=== PATIENT | female | born 1960 | race Caucasian/White ===

== ENCOUNTER 2019-10-22 11:25 | Outpatient (CLI) | payer MEDICARE, MEDICAID, SELFPAY ==
--- NOTE | ~2019-10-22 | XR_ITS ---
EXAMINATION: XR knee LT 3V DATE: 10/22/2019 11:54 INDICATION: Left knee pain. TECHNIQUE: 3 views of left knee on 4 radiographs were obtained. COMPARISON: None. FINDINGS: Bone alignment is normal. No fracture. There is mild osteoarthritis of medial and lateral c ompartments and moderate osteoarthritis of patellofemoral compartment. There is no lateral view to as sess for joint effusion. There are surgical clips medial to the knee. IMPRESSION: 1. Moderate left knee osteoarthritis. Reviewed, dictated and finalized at location A.
== END 2019-10-22 11:26 | disposition home or self-care (01) ==
LOC: ANHIMG 11:30
PROVIDERS: PCP Internal Medicine; Visit Provider Nurse Practitioner
DX: M17.12 Unilateral primary osteoarthritis, left knee (principal)
CPT/HCPCS: 73562

== ENCOUNTER 2020-04-23 10:50 | Outpatient (CLI) | payer MEDICARE, MEDICAID, SELFPAY ==
[2020-04-23 11:28] LABS: Basophils Percent Auto 0.5 % (0.2-1.2); Eosinophils Absolute Auto 0.1 K/mm3 (0-0.3); Hemoglobin 8.6 g/dL (12.0-15.0); Immature Granulocyte Absolute 0.02 K/mm3 (0.00-0.031); Immature Granulocyte Percent A 0.3 % (0-0.5); Lymphocytes Absolute Auto 2.29 K/mm3 (0.9-3.2); Lymphocytes Percent Auto 37.4 % (18.3-44.2); Mean Corpuscular HGB Conc 31.9 g/dl (32-36); Mean Corpuscular Hemoglobin 30.9 pg (26-34); Mean Corpuscular Volume 97.1 fl (80-100); Mean Platelet Volume 10.2 fl (7.4-10.4); Monocytes Absolute Auto 0.5 K/mm3 (0.1-0.6); Neutrophils Absolute Auto 3.2 K/mm3 (1.3-6.7); Neutrophils Percent Auto 51.8 % (45.5-73.1); Platelet Count Result 192 k/mm3 (150-375); Red Blood Count 2.78 M/mm3 (4.2-5.4); Red Cell Distribution Width 14.1 % (11.5-14.5); White Blood Count 6.1 K/mm3 (4.5-10.0)
[2020-04-23 11:49] LABS: Iron 32 ug/dL (37-170)
[2020-04-23 11:59] LABS: Percent Iron Saturation 10 % (20-50)
[2020-04-27 12:14] LABS: ANA Cascade Screen Negative (Negative)
[2020-04-27 23:30] LABS: Abnormal Protein Band 1 2.2 g/dL; Albumin 3.4 g/dL (3.8-4.8); Alpha 1 Globulin 0.2 g/dL (0.2-0.3); Alpha 2 Globulin 0.8 g/dL (0.5-0.9); Beta 1 Globulin 0.5 g/dL (0.4-0.6); Gamma Globulin 2.6 g/dL (0.8-1.7); Protein, Total 7.7 g/dL (6.1-8.1)
[2020-04-30 05:48] LABS: Abnormal Protein Band 1 3 mg/dL; Abnormal Protein Band 2 13 mg/dL; Creatinine, Random Urine 94 mg/dL (20-275); Total Protein/Creatinine Ratio 415 mg/g creat (21-161)
== END 2020-04-23 10:51 | disposition home or self-care (01) ==
LOC: ANHLAB 10:55
PROVIDERS: PCP Internal Medicine; Visit Provider Nurse Practitioner
DX: N18.9 Chronic kidney disease, unspecified (principal); D64.9 Anemia, unspecified
CPT/HCPCS: 36415; 82570; 82728; 83540; 83550; 84155; 84156; 84165; 84166; 85025; 86038

== ENCOUNTER 2020-04-27 08:31 | Outpatient (CLI) | payer MEDICARE, MEDICAID, SELFPAY ==
--- NOTE | ~2020-04-27 | CT_ITS ---
EXAMINATION: CT lung screening DATE: 04/27/2020 08:52 INDICATION: Personal history of tobacco dependence, current smoker with 30 pack year history TECHNIQUE: Computed tomography (CT) of the chest was performed without intravenous contrast. The dose -length product (DLP) was 113.92 mGy-cm. 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 COMPARISON: 02/16/2015 FINDINGS: Stable nodules measure up to 3 mm. No new or suspicious pulmonary nodule is identified. The lungs are free of acute opacities. There is no pleural effusion or pneumothorax. Changes of coronary artery bypass grafting are noted. The heart size is normal. There are no pathologically enlarged tho racic lymph nodes. The gallbladder is surgically absent. There is mild thoracic spondylosis. IMPRESSION: 1. Lung-RADS category 2: Benign appearance or behavior. Continue annual screening with noncontrast lo w-dose chest CT in 12 months. Reviewed, dictated and finalized at location A. ATRIC CLINICAL NURSE SPECIALIST IMPRESSION: 1. Lung-RADS category 2: Benign appearance or behavior. Continue annual screeni ng with noncontrast low-dose chest CT in 12 months.
== END 2020-04-27 08:32 | disposition home or self-care (01) ==
PROVIDERS: PCP Internal Medicine; Visit Provider Nurse Practitioner
DX: Z12.2 Encounter for screening for malignant neoplasm of respiratory organs (principal); Z87.891 Personal history of nicotine dependence
CPT/HCPCS: G0297

== ENCOUNTER 2020-05-18 15:48 | Outpatient (CLI) | payer MEDICARE, MEDICAID, SELFPAY ==
[2020-05-18 16:06] LABS: Basophils Percent Auto 0.7 % (0.2-1.2); Eosinophils Absolute Auto 0.1 K/mm3 (0-0.3); Eosinophils Percent Auto 1.8 % (0-4.4); Hematocrit 27.9 % (37.0-47.0); Hemoglobin 8.8 g/dL (12.0-15.0); Immature Granulocyte Absolute 0.02 K/mm3 (0.00-0.031); Immature Granulocyte Percent A 0.3 % (0-0.5); Immature Reticulocyte Fraction 23.9 % (3.0-15.9); Lymphocytes Absolute Auto 2.08 K/mm3 (0.9-3.2); Lymphocytes Percent Auto 34.3 % (18.3-44.2); Mean Corpuscular HGB Conc 31.5 g/dl (32-36); Mean Corpuscular Hemoglobin 30.3 pg (26-34); Mean Corpuscular Volume 96.2 fl (80-100); Mean Platelet Volume 9.6 fl (7.4-10.4); Monocytes Absolute Auto 0.5 K/mm3 (0.1-0.6); Monocytes Percent Auto 7.7 % (2.6-8.5); Neutrophils Absolute Auto 3.4 K/mm3 (1.3-6.7); Neutrophils Percent Auto 55.2 % (45.5-73.1); Platelet Count Result 201 k/mm3 (150-375); Red Cell Distribution Width 14.2 % (11.5-14.5); Reticulocyte Hemoglobin Conten 35.4 pg (28.2-35.7); Reticulocyte Percent 2.05 % (0.7-4.3); Reticulocytes Absolute 0.06 B/L (32.2-175.7); White Blood Count 6.1 K/mm3 (4.5-10.0)
[2020-05-18 16:33] LABS: Iron 55 ug/dL (37-170)
[2020-05-18 16:35] LABS: Alanine Aminotransferase 10 U/L (4-35); Albumin Level 3.8 g/dL (3.5-5.1); Alkaline Phosphatase 87 U/L (38-126); Anion Gap 9 mmol/L (8-16); Aspartate Amino Transferase 20 U/L (14-36); Bilirubin,Total 0.3 mg/dL (0.2-1.3); Blood Urea Nitrogen 17 mg/dL (7-17); Calcium 9.7 mg/dL (8.4-10.2); Carbon Dioxide 29 mmol/L (22-30); Chloride 103 mmol/L (98-107); Estimated Glomerular Filt Rate 50; Glucose 117 mg/dL (65-105); Lactate Dehydrogenase 327 U/L (313-618); Potassium 4.3 mmol/L (3.4-5.0); Sodium 141 mmol/L (137-145)
[2020-05-18 16:44] LABS: Percent Iron Saturation 17 % (20-50)
[2020-05-18 17:45] LABS: Folic Acid 9.1 ng/mL (2.76->20)
== END 2020-05-18 15:49 | disposition home or self-care (01) ==
LOC: ANHLAB 15:52
PROVIDERS: PCP Internal Medicine; Visit Provider Internal Medicine Hematology & Oncology
DX: D50.9 Iron deficiency anemia, unspecified (principal)
CPT/HCPCS: 36415; 80053; 82607; 82728; 82746; 83540; 83550; 83615; 85025; 85046

== ENCOUNTER 2020-06-02 10:44 | Outpatient (CLI) | payer MEDICARE, MEDICAID, SELFPAY ==
[2020-06-02 13:08] LABS: Immunoglobulin G 429 mg/dL (700-1600)
[2020-06-02 13:14] LABS: Immunoglobulin M < 25 mg/dL (40-230)
[2020-06-02 13:39] LABS: Immunoglobulin A 2864 mg/dL (70-400)
[2020-06-04 07:33] LABS: Kappa\\Lambda Light Chains 0.05 (0.26-1.65); Lambda Light Chain 275.5 mg/L (5.7-26.3)
[2020-06-06 11:31] LABS: Abnormal Protein Band 1 2.2 g/dL; Albumin 3.5 g/dL (3.8-4.8); Alpha 1 Globulin 0.3 g/dL (0.2-0.3); Alpha 2 Globulin 0.8 g/dL (0.5-0.9); Beta 1 Globulin 0.5 g/dL (0.4-0.6); Gamma Globulin 2.6 g/dL (0.8-1.7)
== END 2020-06-02 10:45 | disposition home or self-care (01) ==
LOC: ANHLAB 10:46
PROVIDERS: PCP Internal Medicine; Visit Provider Internal Medicine Hematology & Oncology
DX: D64.9 Anemia, unspecified (principal); D72.9 Disorder of white blood cells, unspecified
CPT/HCPCS: 36415; 82784; 83883; 84155; 84165

== ENCOUNTER 2020-06-06 00:55 | Outpatient (CLI) | payer MEDICARE, MEDICAID, SELFPAY ==
[2020-06-06 18:47] LABS: SARS-CoV-2 RNA PCR Negative
== END 2020-06-06 00:56 | disposition home or self-care (01) ==
LOC: ANHCOVIDDT 00:57
PROVIDERS: Radiology Diagnostic Radiology; PCP Internal Medicine; Visit Provider Internal Medicine Hematology & Oncology
DX: Z01.812 Encounter for preprocedural laboratory examination (principal); Z20.822 Contact with and (suspected) exposure to COVID-19
CPT/HCPCS: C9803; U0003; U0005

== ENCOUNTER 2020-06-09 02:01 | Day surgery (SDC) | payer MEDICARE, MEDICAID, SELFPAY ==
[2020-06-08 17:03] VITALS: BMI 30.7
--- NOTE | ~2020-06-09 | BM_ITS ---
EXAMINATION: CCL bone marrow asp w bx diag DATE: 06/09/2020 10:14 INDICATION: Plasma cell disorder. TECHNIQUE: A time-out was performed to verify the patient's name, date of , and procedure to b e performed. The procedure including the risks, benefits, and alternatives was discussed with the pat ient. Risks discussed included bleeding and infection. The patient understood the risks and agreed to proceed. The skin overlying the right ilium was prepped and draped in usual sterile fashion. Anest hetic was administered with 1% lidocaine subcutaneously. 50 mcg fentanyl IV was given for pain contro l. An 11 gauge needle was inserted into the ilium with fluoroscopic guidance. Bone marrow was aspira laury. An 8 gauge needle was then inserted into the ilium with fluoroscopic guidance. A core bone marro w biopsy was obtained. There were no immediate complications. Fluoroscopy exposure time was 0.0 minut es. The total number of images was 4. FINDINGS: Real-time fluoroscopy demonstrates a marker overlying the right posterior superior iliac sp ine. IMPRESSION: 1. Fluoro-guided bone marrow aspiration. 2. Fluoro-guided bone marrow core biopsy. Reviewed, dictated and finalized at location A. BURNISHER
[2020-06-09 08:57] LABS: Basophils Percent Auto 0.5 % (0.2-1.2); Eosinophils Absolute Auto 0.1 K/mm3 (0-0.3); Hematocrit 27.9 % (37.0-47.0); Hemoglobin 8.9 g/dL (12.0-15.0); Immature Granulocyte Absolute 0.01 K/mm3 (0.00-0.031); Immature Granulocyte Percent A 0.2 % (0-0.5); Lymphocytes Percent Auto 36.2 % (18.3-44.2); Mean Corpuscular HGB Conc 31.9 g/dl (32-36); Mean Corpuscular Hemoglobin 30.6 pg (26-34); Mean Corpuscular Volume 95.9 fl (80-100); Mean Platelet Volume 10.1 fl (7.4-10.4); Monocytes Absolute Auto 0.5 K/mm3 (0.1-0.6); Monocytes Percent Auto 9.1 % (2.6-8.5); Neutrophils Absolute Auto 2.9 K/mm3 (1.3-6.7); Platelet Count Result 187 k/mm3 (150-375); Red Blood Count 2.91 M/mm3 (4.2-5.4); Red Cell Distribution Width 14.2 % (11.5-14.5); White Blood Count 5.5 K/mm3 (4.5-10.0)
[2020-06-09 09:08] LABS: Prothrombin Time 13.5 Seconds (11.1-14.7)
[2020-06-09 09:10] VITALS: BP 131/65; PULSE 68; RESP 15; TEMP 36.7; O2SAT 100
[2020-06-09 10:15] VITALS: BP 146/75; PULSE 68; RESP 18; TEMP 36.6; O2SAT 100
[2020-06-09 10:30] VITALS: BP 148/71; PULSE 72; RESP 16; O2SAT 100
[2020-06-09 10:45] VITALS: BP 164/61; PULSE 69; RESP 15; O2SAT 98
[2020-06-09 11:00] VITALS: BP 158/65; PULSE 68; RESP 17; O2SAT 96
[2020-06-09 11:15] VITALS: BP 155/62; PULSE 72; RESP 20; O2SAT 99
--- NOTE | 2020-06-09 13:01 | SUR.PHASEII ---
1125 D/C instructions reviewed patient, questions asked and answered. IV d/c'd, cath intact, pressure applied. 1140 Pt transported via wheelchair to [facility] where her daughter picked her up in a private vehicle and drove her home.
== END 2020-06-09 11:40 | disposition home or self-care (01) ==
PROVIDERS: PCP Internal Medicine; Referring Provider Internal Medicine Hematology & Oncology; Visit Provider Radiology Diagnostic Radiology
DX: C90.10 Plasma cell leukemia not having achieved remission (principal); I25.10 Atherosclerotic heart disease of native coronary artery without angina pectoris; I12.9 Hypertensive chronic kidney disease with stage 1 through stage 4 chronic kidney disease, or unspecified chronic kidney disease; N18.9 Chronic kidney disease, unspecified; J44.9 Chronic obstructive pulmonary disease, unspecified; I25.2 Old myocardial infarction; E11.22 Type 2 diabetes mellitus with diabetic chronic kidney disease; F32.9 Major depressive disorder, single episode, unspecified; Z95.1 Presence of aortocoronary bypass graft; Z87.891 Personal history of nicotine dependence
CPT/HCPCS: 36415; 38222; 82784; 83883; 84155; 84165; 85025; 85610; 88184; 88185; 88305; 88311; 88313; 88360; C9803; J2250; J3010; J7040; U0003; U0005

== ENCOUNTER 2020-07-01 09:59 | Outpatient (CLI) | payer MEDICARE, MEDICAID, SELFPAY | END 2020-07-01 10:00 | disposition home or self-care (01) | LOC: ANHLAB 10:02 | PROVIDERS: PCP Internal Medicine; Visit Provider Internal Medicine Hematology & Oncology | DX: D64.9 Anemia, unspecified (principal) | CPT/HCPCS: 36415; 82607 ==

== ENCOUNTER 2020-07-07 08:05 | Outpatient (CLI) | payer MEDICARE, MEDICAID, SELFPAY ==
--- NOTE | ~2020-07-07 | PE_ITS ---
EXAMINATION: PET skull to mid thigh DATE: 07/07/2020 10:19 INDICATION: Multiple myeloma TECHNIQUE: Blood glucose level was 153 mg/dL. 8.894 mCi of 18-fluorodeoxyglucose (18-FDG) was adminis tered i.v. Low dose computed tomography (CT) images were acquired from the base of the brain to the p roximal thighs for attenuation correction and anatomic localization. Positron emission tomography (PE T) images were acquired in the same distribution beginning 73 minutes after injection. Images includi ng fused PET/CT images were reconstructed in axial, coronal, and sagittal planes. Automated exposure control technique was employed. The dose-length product was 757.48mGy-cm. COMPARISON: Chest CT dated 04/27/2020 FINDINGS: Head/neck: There is symmetric increased activity in the oral cavity, palatine tonsils, parotid glands, submandi bular glands, laryngeal muscles and ocular muscles without CT correlate, likely physiologic. Mild lik genia physiologic uptake without radiologic correlate along the right longus capitis muscle. Atheroscle rotic calcification is at the bilateral carotid bulbs. No pathologically enlarged cervical lymphadeno chance or suspicious foci of increased FDG uptake in the visualized head or neck. Chest: Moderate respiratory motion lungs which limits assessment of fine pulmonary parenchymal detail. There is suggestion of mild emphysema. Mild discoid atelectasis in the left lower lobe. Again seen are a f ew <4 mm nodules at the periphery of the bilateral upper lobes without evident FDG activity. No pneum onia, pulmonary edema or pleural effusion. Heart size is normal. No pericardial effusion. Atheroscler otic coronary artery disease with change of prior median sternotomy and coronary artery bypass grafti ng. Thoracic aorta is normal in caliber. No pathologically enlarged thoracic lymphadenopathy or suspi cious FDG avid lesions. Abdomen/pelvis/proximal thighs: Physiologic renal accumulation and excretion of FDG activity in the kidneys, bladder and along portio ns of ureters. Normal degree and heterogenous pattern of increased uptake throughout the liver withou t radiologic correlate or dominant FDG avid lesion. There is diffuse increased density of the liver. Status post cholecystectomy. The pancreas, spleen and bilateral adrenal glands are normal. There is m oderate colonic diverticulosis with a sigmoid predominance without adjacent inflammatory change to metz ggest diverticulitis. Moderate scattered uptake throughout the bowels without radiologic correlate, a lso likely physiologic. Anteverted uterus is unremarkable. No other abnormal foci of increased FDG up take or pathologically enlarged lymphadenopathy in the abdomen, pelvis or proximal thighs. There is c alcified atherosclerosis of the aorta and many of the other arteries. Musculoskeletal: L3 spondylolysis with bilateral pars interarticularis defects, 5 mm anterolisthesis on L4 with severe disc height loss with vacuum phenomenon Modic type III degenerative endplate changes. Likely physiol ogic mild increased muscular uptake at both shoulders most prominent at the anterior aspect of the bi lateral deltoid muscles which are without radiologic correlate. Bone marrow biopsy tract at the right posterior iliac spine. There are bridging osteophytes at multiple levels in the spine, consistent wi th diffuse idiopathic skeletal hyperostosis (DISH).No suspicious lytic, blastic or FDG avid bone lesi ons. IMPRESSION: 1. No suspicious lytic or blastic bone lesions or FDG avid lesions suspicious for malignancy. 2. Mild emphysema. 3. Increased nonspecific density to the liver which could be seen with hemachromatosis or chronic ami odarone use. 4. Diverticulosis. 5. L3 spondylolysis with bilateral pars interarticularis defects and 5 mm anterolisthesis on L4. Reviewed, dictated and final
[2020-07-07 08:21] LABS: Glucose Point of Care 153 (65-105)
== END 2020-07-07 08:06 | disposition home or self-care (01) ==
PROVIDERS: PCP Internal Medicine; Visit Provider Internal Medicine Hematology & Oncology
DX: C90.00 Multiple myeloma not having achieved remission (principal); Z51.81 Encounter for therapeutic drug level monitoring; Z79.899 Other long term (current) drug therapy
CPT/HCPCS: 78815; 82948; A9552

== ENCOUNTER → 2020-07-25 00:21 | Outpatient (CLI) | payer MEDICARE, MEDICAID, SELFPAY ==
[2020-07-25 19:13] LABS: SARS-CoV-2 RNA PCR Negative
== END ==
PROVIDERS: PCP Internal Medicine; Visit Provider Internal Medicine Gastroenterology
DX: Z01.812 Encounter for preprocedural laboratory examination (principal); Z20.822 Contact with and (suspected) exposure to COVID-19
CPT/HCPCS: C9803; U0003; U0005

== ENCOUNTER 2020-07-28 01:06 | Day surgery (SDC) | payer MEDICARE, MEDICAID, SELFPAY ==
[2020-07-10 14:18] VITALS: BMI 30.4
[2020-07-28 09:00] VITALS: BP 173/68; PULSE 83; RESP 18; TEMP 36.4; O2SAT 100; BMI 30.4
[2020-07-28] MEDS: LACTATED RINGERS 1,000 ML 150 ML IV CONT (09:14)
[2020-07-28 09:17] LABS: Glucose Point of Care 142 (65-105)
--- NOTE | 2020-07-28 09:23 | WPDANESEPPF ---
Anes - Initial Pre Proc Eval Procedure: Operation Date: 07/28/20 10:15 Proposed Procedures p Esophagogastroduodenoscopy & Colonoscopy - Timothy Cooper MD Date/Time: 07/28/20 09:23 Surgeon: Timothy Cooper MD Pre Op Diagnosis: iron deficiency anemia Patient Data Age: 60 Gender: F Height: 5 ft 3 in Weight: 77.8 kg Last Vital Signs Temp 97.6 F 07/28/20 09:00 Pulse 83 07/28/20 09:00 Resp 18 07/28/20 09:00 BP 173/68 H 07/28/20 09:00 Pulse Ox 100 07/28/20 09:00 Allergies Allergy/AdvReac Type Severity Reaction Status Date / Time GÓMEZ Inhibitors Allergy Unknown Hives Verified 07/28/20 08:59 codeine Allergy Unknown Chest Pain Verified 07/28/20 08:59 tiotropium Allergy Unknown Unknown Verified 07/28/20 08:59 Home Medications Medication Instructions Recorded Confirmed Type aspirin 81 mg tablet,delayed 81 mg PO DAILY 03/19/19 07/28/20 History release albuterol sulfate 90 mcg/actuation 1 inhalation INHALATION Q4H PRN 04/03/19 07/28/20 Rx aerosol inhaler #8.5 gm fluticasone 100 mcg-salmeterol 50 1 puff INHALATION BID #60 each 05/03/19 07/28/20 Rx mcg/dose blistr powdr for inhalation blood sugar diagnostic #100 each 12/02/19 07/28/20 Rx insulin glargine 100 unit/mL (3 8 unit SUB-Q DAILY #15 ml 01/09/20 07/28/20 Rx mL) subcutaneous pen venlafaxine 75 mg tablet 75 mg PO DAILY #90 tablet 02/17/20 07/28/20 Rx lancets 33 gauge #100 ea 03/10/20 07/28/20 Rx pen needle, diabetic 31 gauge x #100 each 04/28/20 07/28/20 Rx 3/16 carvedilol 6.25 mg tablet 6.25 mg PO BID #180 tablet 05/07/20 07/28/20 Rx ferrous sulfate 325 mg (65 mg 325 mg PO DAILY #90 tablet 05/07/20 07/28/20 Rx iron) tablet losartan 25 mg tablet 25 mg PO DAILY #90 tablet 05/07/20 07/28/20 Rx metformin 500 mg tablet See Rx Instructions .ROUTE 05/07/20 07/28/20 Rx .COMPLEX #360 tablet omeprazole 40 mg capsule,delayed 40 mg PO BID #180 cap 05/07/20 07/28/20 Rx release oxybutynin chloride 5 mg tablet 5 mg PO BID #180 tablet 05/07/20 07/28/20 Rx pravastatin 40 mg tablet 40 mg PO DAILY #90 tablet 05/07/20 07/28/20 Rx trazodone 50 mg tablet 50 mg PO DAILY #180 tablet 05/07/20 07/28/20 Rx Laboratory Tests 07/28/20 09:07 POC Capillary Glucose 142 mg/dl H mg/dl (65-105) Patient hx anesthesia problems: none Family hx anesthesia problems: none PMFSH Past Medical History Medical History (Updated 07/23/20 @ 15:45 by Johnna Block NP) Anemia Bronchitis CAD (coronary artery disease) Cholecystectomy planned 1980 Chronic pain CKD (chronic kidney disease) COPD (chronic obstructive pulmonary disease) Heart attack 2010 Hyperlipidemia Hypertension Lump in neck Major depressive disorder Obesity Obesity (BMI 30.0-34.9) Type 2 diabetes mellitus Surgical History Surgical History S/P triple vessel bypass 2016 Family History Family History Father Diabetes mellitus Family history of congestive heart failure Mother Hypertension Social History Social History Smoking status: Former smoker Tobacco type: cigarettes Smoking end date: 05/08/10 Alcohol intake: current Drinks per week: 1 Substance use: never Substance use type: does not use Living arrangements: with family Gender identity (if verbalized by the patient): Female Spiritual care concerns: No Anes - Eval Final PreProcedure Day of Procedure 07/28/20 09:23 Patient weight: overweight Heart: regular rate and rhythm Lungs: clear to auscultation Airway: Mallampati scale class III Neurological: alert and oriented Last oral intake: >/= 8 hours ASA classification: III Emergent: no Anesthetic plan: proceed Anesthesia type and monitoring: general GIVS and standard monitoring Informed Consent: The patie
--- NOTE | 2020-07-28 09:36 | PM.HPGS ---
History of Present Illness History of Present Illness Consent: Risks, benefits, and alternatives have been discussed and questions answered. Patient agrees to proceed with procedure. Chief complaint: iron deficiency anemia Narrative: Eva Li is a 60 year old female with RAMIRO, never had scopes, denies over gib. Also gerd on omeprazole Review of Systems Constitutional: Constitutional: Denies headache(s) and Denies weakness Eyes: Eyes: Denies blurry vision ENT: Reports Normal hearing present, Denies headache(s) and Denies neck pain Cardiovascular: Cardiovascular: Denies chest pain and Denies dyspnea Respiratory: Respiratory: Denies dyspnea Gastrointestinal: Gastrointestinal: Reports no additional gastrointestinal complaints Genitourinary: Genitourinary: Denies dysuria Musculoskeletal: Musculoskeletal: Denies neck pain Integumentary/Breasts: Skin/Breast: Denies dry skin Neurologic: Reports Normal hearing present, Denies headache(s) and Denies weakness Psychiatric: Psychiatric: Denies anxiety Endocrine: Endocrine: Denies change in body appearance Hematologic/Lymphatic: Hematologic/Lymphatic: Denies easy bleeding Allergic/Immunologic: Allergic/Immunologic: Denies urticaria [facility] Past Medical History Medical History (Updated 07/28/20 @ 09:37 by Timothy Cooper MD) Anemia Bronchitis CAD (coronary artery disease) Cholecystectomy planned 1980 Chronic pain CKD (chronic kidney disease) COPD (chronic obstructive pulmonary disease) Heart attack 2010 Hyperlipidemia Hypertension Iron deficiency anemia Lump in neck Major depressive disorder Obesity Obesity (BMI 30.0-34.9) Type 2 diabetes mellitus Surgical History Surgical History S/P triple vessel bypass 2017 Family History Family History Father Diabetes mellitus Family history of congestive heart failure Mother Hypertension Social History Social History Smoking status: Former smoker Tobacco type: cigarettes Smoking end date: 05/08/10 Alcohol intake: current Drinks per week: 1 Substance use: never Substance use type: does not use Living arrangements: with family Gender identity (if verbalized by the patient): Female Spiritual care concerns: No Meds Home Medications and Allergies Home Medications Medication Instructions Recorded Confirmed Type aspirin 81 mg tablet,delayed 81 mg PO DAILY 03/19/19 07/28/20 History release albuterol sulfate 90 mcg/actuation 1 inhalation INHALATION Q4H PRN 04/03/19 07/28/20 Rx aerosol inhaler #8.5 gm fluticasone 100 mcg-salmeterol 50 1 puff INHALATION BID #60 each 05/03/19 07/28/20 Rx mcg/dose blistr powdr for inhalation blood sugar diagnostic #100 each 12/02/19 07/28/20 Rx insulin glargine 100 unit/mL (3 8 unit SUB-Q DAILY #15 ml 01/09/20 07/28/20 Rx mL) subcutaneous pen venlafaxine 75 mg tablet 75 mg PO DAILY #90 tablet 02/17/20 07/28/20 Rx lancets 33 gauge #100 ea 03/10/20 07/28/20 Rx pen needle, diabetic 31 gauge x #100 each 04/28/20 07/28/20 Rx 3/16 carvedilol 6.25 mg tablet 6.25 mg PO BID #180 tablet 05/07/20 07/28/20 Rx ferrous sulfate 325 mg (65 mg 325 mg PO DAILY #90 tablet 05/07/20 07/28/20 Rx iron) tablet losartan 25 mg tablet 25 mg PO DAILY #90 tablet 05/07/20 07/28/20 Rx metformin 500 mg tablet See Rx Instructions .ROUTE 05/07/20 07/28/20 Rx .COMPLEX #360 tablet omeprazole 40 mg capsule,delayed 40 mg PO BID #180 cap 05/07/20 07/28/20 Rx release oxybutynin chloride 5 mg tablet 5 mg PO BID #180 tablet 05/07/20 07/28/20 Rx pravastatin 40 mg tablet 40 mg PO DAILY #90 tablet 05/07/20 07/28/20 Rx trazodone 50 mg tablet 50 mg PO DAILY #180 tablet 05/07/20 07/28/20 Rx Allergies Allergy/AdvReac Type Severity Reaction Status Date / Time
--- NOTE | 2020-07-28 09:55 | SUR.OPER ---
EGD ENDED 947 COLONOSCOPY STARTED 951
[2020-07-28 10:12] VITALS: BP 141/57; PULSE 71; RESP 20; O2SAT 100
[2020-07-28 10:22] VITALS: BP 176/65; PULSE 71; RESP 20; O2SAT 100
[2020-07-28 10:28] LABS: Glucose Point of Care 126 (65-105)
[2020-07-28 10:32] VITALS: BP 171/63; PULSE 72; RESP 20; O2SAT 100
== END 2020-07-28 10:54 | disposition home or self-care (01) ==
PROVIDERS: PCP Internal Medicine; Visit Provider Internal Medicine Gastroenterology
PROC: 0DJ08ZZ Inspection of Upper Intestinal Tract, Via Natural or Artificial Opening Endoscopic (ICD-10-PCS; CPT 43235; principal; 2020-07-28 10:15)
DX: K21.9 Gastro-esophageal reflux disease without esophagitis (principal); D50.9 Iron deficiency anemia, unspecified; K29.50 Unspecified chronic gastritis without bleeding; Z12.11 Encounter for screening for malignant neoplasm of colon; D12.3 Benign neoplasm of transverse colon; K57.30 Diverticulosis of large intestine without perforation or abscess without bleeding; I25.10 Atherosclerotic heart disease of native coronary artery without angina pectoris; I12.9 Hypertensive chronic kidney disease with stage 1 through stage 4 chronic kidney disease, or unspecified chronic kidney disease; N18.9 Chronic kidney disease, unspecified; E11.22 Type 2 diabetes mellitus with diabetic chronic kidney disease; J44.9 Chronic obstructive pulmonary disease, unspecified; I25.2 Old myocardial infarction; E78.5 Hyperlipidemia, unspecified; F32.9 Major depressive disorder, single episode, unspecified; Z95.1 Presence of aortocoronary bypass graft; E66.9 Obesity, unspecified; Z68.30 Body mass index [BMI] 30.0-30.9, adult; Z87.891 Personal history of nicotine dependence; Z79.82 Long term (current) use of aspirin; Z79.4 Long term (current) use of insulin; Z79.84 Long term (current) use of oral hypoglycemic drugs; Z79.51 Long term (current) use of inhaled steroids
CPT/HCPCS: 45385; 43239; 82948; 88305; C9803; J2704; J7120; U0003; U0005

== ENCOUNTER 2021-08-20 09:26 | Outpatient (CLI) | payer MEDICARE, MEDICAID, SELFPAY ==
--- NOTE | ~2021-08-20 | XR_ITS ---
EXAMINATION: XR chest 2V EXAM DATE: 08/20/2021 09:43 INDICATION: R05 - Cough . TECHNIQUE: Frontal and lateral projections of the chest obtained and reviewed. Comparison is made to prior examination from 10/14/2018. FINDINGS: Sternotomy wires are present without findings to suggest sternal dehiscence. The lungs are clear. There are no pleural effusions. The cardiomediastinal silhouette is within normal limits. There is no pneumothorax suspected. The bones and soft tissues are unremarkable. There is aortic a rteriosclerosis. IMPRESSION: No acute cardiopulmonary findings. Reviewed, dictated and finalized at location B.
== END 2021-08-20 09:27 | disposition home or self-care (01) ==
PROVIDERS: PCP Internal Medicine; Visit Provider Nurse Practitioner
DX: R05.9 Cough, unspecified (principal)
CPT/HCPCS: 71046

== ENCOUNTER 2021-09-16 09:05 | Outpatient (CLI) | payer MEDICARE, MEDICAID, SELFPAY ==
--- NOTE | 2021-09-16 12:49 | WPDPFTINT ---
PFT Procedure Performed PFT Procedure Performed Spirometry with Pre/Post Bronchodilator Plethysmography (Lung Vol) Diffusing Cap (DLCO) Flow Vol Loop PFT Interpretation This is a pulmonary function test with pre and post-bronchodilator spirometry, plethysmography and diffusing capacity. The test was performed and results interpreted in accordance with the 2019 and 2005 ATS/ERS Task Force guidelines respectively using the Global Lung Function Initiative-2012 reference equations. Patient demonstrated good effort and cooperation. Reproducibility criteria were met. The quality of the pre bronchodilator spirometry maneuver was Grade A and post bronchodilator spirometry maneuver was Grade A. Findings: Spirometry: There is decreased maximal expiratory airflow at all lung volumes with a concave the expiratory flow tracing. The contour the inspiratory flow tracing is normal. The pre bronchodilator FVC is 2.62 L, 88% predicted. The pre bronchodilator FEV1 is 1.63 L, 69% predicted. The pre bronchodilator FEV1: FVC ratio 62%. The post bronchodilator FVC is 2.56 L, representing a 2% decrease. The post bronchodilator FEV1 is 1.66 L, representing 1% increase. The post bronchodilator FEV1: FVC ratio is 65%. Plethysmography: The total lung capacity is 4.67 L, 95% predicted. The functional residual capacity is 2.74 L, 99% predicted. The residual volume is 2.04 L, 103% predicted. Diffusing capacity: The diffusion capacity unadjusted for hemoglobin and carboxyhemoglobin is 10.9, 52% predicted. The diffusing capacity adjusted for alveolar volume is 3.05, 68% predicted. Impression: There is a moderate obstructive abnormality without significant improvement after inhaling a single dose of albuterol. The lung volumes are normal. The diffusing capacity unadjusted for hemoglobin and carboxyhemoglobin is moderately decreased and remains mildly decreased when adjusted for alveolar volume. There are no prior studies for comparison
== END 2021-09-16 09:06 | disposition home or self-care (01) ==
PROVIDERS: PCP Internal Medicine; Visit Provider Nurse Practitioner
DX: J44.9 Chronic obstructive pulmonary disease, unspecified (principal); R05.9 Cough, unspecified; R94.2 Abnormal results of pulmonary function studies
CPT/HCPCS: 94060; 94726; 94729

== ENCOUNTER 2022-05-05 11:28 | Outpatient (CLI) | payer MEDICARE, MEDICAID, SELFPAY ==
[2022-05-06 11:07] LABS: Hemoglobin A1C 5.8 % (<5.7)
== END 2022-05-05 11:29 | disposition home or self-care (01) ==
LOC: ANHGOSHLAB 11:32
PROVIDERS: PCP Internal Medicine; Visit Provider Nurse Practitioner
DX: E11.9 Type 2 diabetes mellitus without complications (principal)
CPT/HCPCS: 36415; 83036

== ENCOUNTER 2022-11-03 00:20 | Day surgery (SDC) | payer MEDICARE, MEDICAID, SELFPAY ==
[2022-11-02 15:08] VITALS: BMI 28.3
[2022-11-03] VITALS (7 sets, daily range): BP systolic 140–174; BP diastolic 64–71; PULSE 69–75; RESP 14–18; TEMP 36.6; O2SAT 98–100; BMI 28.3
--- NOTE | ~2022-11-03 | BM_ITS ---
EXAMINATION: CCL bone marrow asp w bx diag ORDER COMPLETED DATE: 11/03/2022 10:11 INDICATION: Myeloma TECHNIQUE: A time-out was performed to verify the patient's name, date of , and procedure to b e performed. The procedure including the risks, benefits, and alternatives was discussed with the pat ient. Risks discussed included bleeding and infection. The patient understood the risks and agreed to proceed. The skin overlying the right posterior iliac spine was prepped and draped in usual sterile fashion. Anesthetic was administered with 1% lidocaine subcutaneously. Systemic analgesia was provide d with 75 mcg fentanyl IV. An 11 gauge needle was inserted into the ilium with fluoroscopic guidance. Bone marrow was aspirated. An 8 gauge needle was then inserted into the ilium with fluoroscopic guid ance. 3 core bone marrow biopsy assessment for specimens were obtained. There were no immediate compl ications. Fluoroscopy exposure time was 0.1 minutes. The total number of images was 8. FINDINGS: Real-time fluoroscopy demonstrates a marker overlying the right posterior iliac spine. IMPRESSION: 1. Successful fluoro-guided bone marrow aspiration. 2. Successful fluoro-guided bone marrow core biopsy. Reviewed, dictated and finalized at location A.
[2022-11-03 08:26] LABS: Basophils Percent Auto 0.8 % (0.2-1.2); Eosinophils Absolute Auto 0.2 K/mm3 (0-0.3); Eosinophils Percent Auto 3.8 % (0-4.4); Hematocrit 29.1 % (37.0-47.0); Hemoglobin 8.9 g/dL (12.0-15.0); Immature Granulocyte Absolute 0.01 K/mm3 (0.00-0.031); Immature Granulocyte Percent A 0.3 % (0-0.5); Lymphocytes Absolute Auto 1.74 K/mm3 (0.9-3.2); Lymphocytes Percent Auto 44.5 % (18.3-44.2); Mean Corpuscular HGB Conc 30.6 g/dl (32-36); Mean Corpuscular Hemoglobin 28.7 pg (26-34); Mean Corpuscular Volume 93.9 fl (80-100); Mean Platelet Volume 9.6 fl (7.4-10.4); Monocytes Absolute Auto 0.4 K/mm3 (0.1-0.6); Neutrophils Absolute Auto 1.6 K/mm3 (1.3-6.7); Neutrophils Percent Auto 41.6 % (45.5-73.1); Platelet Count Result 183 k/mm3 (150-375); Red Cell Distribution Width 15.3 % (11.5-14.5); White Blood Count 3.9 K/mm3 (4.5-10.0)
[2022-11-03 08:40] LABS: Prothrombin Time 13.8 Seconds (11.1-14.7)
--- NOTE | 2022-11-03 09:24 | WPDMODSED ---
Moderate Sedation Note-Pt Data Patient Data Diagnosis: multiple myeloma Present Complaint: multiple myeloma Procedure to be performed/Plan: bone marrow biopsy Allergies Allergy/AdvReac Type Severity Reaction Status Date / Time GÓMEZ Inhibitors Allergy Unknown Hives Verified 11/02/22 14:59 codeine Allergy Unknown Chest Pain Verified 11/02/22 14:59 tiotropium Allergy Unknown Unknown Verified 11/02/22 14:59 Home Medications Medication Instructions Recorded Confirmed Type aspirin 81 mg tablet,delayed 81 mg PO DAILY 03/19/19 11/02/22 History release (Adult Low Dose Aspirin) albuterol sulfate 90 mcg/actuation 1 inhalation inhalation Q4H PRN 04/03/19 11/02/22 Rx aerosol inhaler (ProAir HFA) shortness of breath #8.5 grams blood sugar diagnostic (OneTouch #100 ea 12/02/19 10/25/22 Rx Ultra Blue Test Strip) fluticasone 100 mcg-salmeterol 50 1 inh inhalation BID #60 ea 12/21/20 11/02/22 Rx mcg/dose blistr powdr for inhalation (Advair Diskus) pen needle, diabetic 31 gauge x #100 ea 08/20/21 10/25/22 Rx 3/16 (TRUEplus Pen Needle) ferrous sulfate 325 mg (65 mg See Rx Instructions .Route 10/28/21 11/02/22 Rx iron) tablet (FeroSul) .COMPLEX #90 tabs budesonide-formoterol HFA 80 2 puff inhalation Q12H #10.2 grams 11/18/21 11/02/22 Rx mcg-4.5 mcg/actuation aerosol inhaler (Symbicort) pravastatin 40 mg tablet See Rx Instructions .Route 03/23/22 11/02/22 Rx .COMPLEX #90 tabs benzonatate 100 mg capsule 100 mg PO TID PRN cough #30 caps 04/15/22 11/02/22 Rx carvedilol 6.25 mg tablet 6.25 mg PO BID #180 tabs 05/16/22 11/03/22 Rx blood sugar diagnostic #100 ea 05/23/22 10/25/22 Rx lancets 28 gauge (Prodigy Lancets) #100 ea 05/23/22 10/25/22 Rx metformin 500 mg tablet See Rx Instructions .Route 07/22/22 11/02/22 Rx .COMPLEX #360 tabs venlafaxine 150 mg See Rx Instructions .Route 07/22/22 11/02/22 Rx capsule,extended release 24 hr .COMPLEX #90 caps insulin detemir U-100 100 unit/mL 4 unit (0.04 mL) subcut QHS #15 mL 08/25/22 11/02/22 Rx (3 mL) subcutaneous pen (Levemir FlexPen) omeprazole 40 mg capsule,delayed 40 mg PO BID #60 caps 09/22/22 11/02/22 Rx release losartan 25 mg tablet 25 mg PO DAILY #90 tabs 10/28/22 11/02/22 Rx trazodone 50 mg tablet See Rx Instructions .Route 10/31/22 11/02/22 Rx .COMPLEX #180 tabs oxybutynin chloride 5 mg tablet 5 mg PO DAILY 11/02/22 11/02/22 History vitamin B complex (B 1 tablet PO DAILY 11/02/22 11/02/22 History Complex-Vitamin B12 tablet) Sedation/Anesthesia: No previous sedation/anesthesia problems (including family history). [facility] Past Medical History Medical History Anemia Bronchitis CAD (coronary artery disease) Cholecystectomy planned 1980 Chronic pain CKD (chronic kidney disease) COPD (chronic obstructive pulmonary disease) Heart attack 2010 Hyperlipidemia Hypertension Iron deficiency anemia Lump in neck Major depressive disorder Obesity Obesity (BMI 30.0-34.9) Type 2 diabetes mellitus Surgical History Surgical History S/P triple vessel bypass 2016 Family History Family History Father Diabetes mellitus Family history of congestive heart failure Mother Hypertension Social History Social History (Updated 05/05/22 @ 10:38 by Betzaida Gayle CMA) Social History: Caffeine-coffee/soda Smoking packs per day: 1 Smoking cigarettes per day: 20.0 Years smoked: 35 Smoking pack-years: 35.00 Smoking status: Former smoker Tobacco type: cigarettes Second hand tobacco smoke exposure: No Smoking end date: 05/08/10 Additional smoking assessment comments: 2010 Alcohol intake: never Drinks per week: 1 Alcohol use details: Pt drinks occasionally. Substance use: current Substance use type: marijuana Other substa
--- NOTE | 2022-11-03 10:46 | SUR.PHASEII ---
Addendum entered by Meggan Cardenas RN 11/03/22 15:02: Asked MD also about when to restart home aspirin. MD stated patient can restart aspirin tomorrow morning as normal. Original Note: Call placed to Dr. Caceres. Stated pt having complaint of pain, patient describes it at lower mid back where procedure site is. Checked site, dressing clean dry and intact. Notified MD of this. One time order received for po pain medication before discharge.
[2022-11-03] MEDS: HYDROcodone/acetaminophen (*CRX) 5-325 MG TABLET 1 TAB PO (11:08)
== END 2022-11-03 11:30 | disposition home or self-care (01) ==
PROVIDERS: Absent Provider Internal Medicine Hematology & Oncology; PCP Internal Medicine; Visit Provider Radiology Diagnostic Radiology
DX: C90.00 Multiple myeloma not having achieved remission (principal); I12.9 Hypertensive chronic kidney disease with stage 1 through stage 4 chronic kidney disease, or unspecified chronic kidney disease; E11.22 Type 2 diabetes mellitus with diabetic chronic kidney disease; N18.9 Chronic kidney disease, unspecified; I25.10 Atherosclerotic heart disease of native coronary artery without angina pectoris; J44.9 Chronic obstructive pulmonary disease, unspecified; I25.2 Old myocardial infarction; E78.5 Hyperlipidemia, unspecified; D50.9 Iron deficiency anemia, unspecified; F32.9 Major depressive disorder, single episode, unspecified; E66.9 Obesity, unspecified; Z68.28 Body mass index [BMI] 28.0-28.9, adult; Z95.1 Presence of aortocoronary bypass graft; Z79.82 Long term (current) use of aspirin; Z79.51 Long term (current) use of inhaled steroids; Z79.84 Long term (current) use of oral hypoglycemic drugs; Z79.4 Long term (current) use of insulin; Z87.891 Personal history of nicotine dependence; F12.90 Cannabis use, unspecified, uncomplicated
CPT/HCPCS: 36415; 38222; 85025; 85610; 88184; 88185; 88305; 88311; 88313; 88342; A9270; J1642; J2250; J3010; J7050

== ENCOUNTER 2022-11-22 10:07 | Outpatient (CLI) | payer MEDICARE, MEDICAID, SELFPAY ==
[2022-11-22 11:40] LABS: Hemoglobin A1C 5.8 % (<5.7)
== END 2022-11-22 10:08 | disposition home or self-care (01) ==
LOC: ANHLAB 10:09
PROVIDERS: PCP Nurse Practitioner; Visit Provider Internal Medicine Hematology & Oncology
DX: E11.9 Type 2 diabetes mellitus without complications (principal)
CPT/HCPCS: 36415; 83036

== ENCOUNTER 2022-11-30 15:10 | Outpatient (CLI) | payer MEDICARE, MEDICAID, SELFPAY ==
--- NOTE | ~2022-11-30 | XR_ITS ---
EXAMINATION: BONE SURVEY/METASTATIC SURVEY DATE: 11/30/2022 INDICATION: Multiple myeloma not having achieved remission TECHNIQUE: A skeletal survey was performed including PA views of the chest; AP and lateral/lateral sw immers views of the cervical, thoracic and lumbar spine; AP and lateral view of the skull, and AP and lateral views of the appendicular skeleton excluding the hands and feet. COMPARISON: None. FINDINGS: No suspicious lytic or blastic bone lesions in the axial or appendicular skeleton. Mild cervical, mod erate thoracic and severe lumbar spondylosis. 7 mm anterolisthesis L3 on L4. Chronic mild anterior we dging at T11. Lungs are clear with no focal airspace opacities, pulmonary edema, pleural effusion or pneumothorax. Heart size is normal. Median sternotomy wires and mediastinal surgical clips are seen, likely from prior coronary artery bypass grafting. IMPRESSION: 1. No suspicious lytic or blastic bone lesions. Reviewed, dictated and finalized at location A.
== END 2022-11-30 15:11 | disposition home or self-care (01) ==
LOC: ANHIMG 15:13
PROVIDERS: PCP Nurse Practitioner; Visit Provider Internal Medicine Hematology & Oncology
DX: C90.00 Multiple myeloma not having achieved remission (principal)
CPT/HCPCS: 77075

== ENCOUNTER 2023-01-03 13:55 | Outpatient (CLI) | payer MEDICARE, MEDICAID, SELFPAY ==
--- NOTE | ~2023-01-03 | US_ITS ---
EXAMINATION: US venous doppler LE RT DATE: 01/03/2023 14:52 INDICATION: LEG SWELLING . TECHNIQUE: Grayscale images without and with compression and Doppler images of the right lower extrem ity veins were obtained. COMPARISON: 02/05/2014 FINDINGS: The right common femoral vein, profunda (deep) femoral vein, femoral vein, popliteal vein, posterior tibial veins, gastrocnemius vein, and greater saphenous vein are patent. The peroneal veins are not v isualized. IMPRESSION: Peroneal veins not visualized. Otherwise patent right lower extremity veins without evidence of deep venous thrombosis. Reviewed, dictated and finalized at location K. IMPRESSION: Peroneal veins not visualized. Otherwise patent right lower extremity veins wit hout evidence of deep venous thrombosis.
== END 2023-01-03 13:56 | disposition home or self-care (01) ==
PROVIDERS: PCP Nurse Practitioner; Visit Provider Internal Medicine Hematology & Oncology
DX: M79.89 Other specified soft tissue disorders (principal)
CPT/HCPCS: 36415; 80047; 80053; 85025; 93971; 96372; 96401; J9041; Q5106

== ENCOUNTER 2023-03-03 07:41 | Outpatient (RCR) | payer MEDICARE, MEDICAID, SELFPAY ==
[2023-03-03] VITALS (12 sets, daily range): BP systolic 137–164; BP diastolic 47–89; PULSE 61–70; RESP 16–18; TEMP 36.3–37; O2SAT 97–100
[2023-03-03] MEDS: ACETAMINOPHEN 325 MG TABLET 650 MG PO (08:07)
[2023-03-03] MEDS: diphenhydrAMINE HCl CAP 25 MG CAPSULE PO (08:08)
[2023-03-03] MEDS: SODIUM CHLORIDE 0.9% IV 250 ML 30 ML IV CONT (08:08)
[2023-03-03] MEDS: FUROSEMIDE INJ 40 MG/4 ML VIAL 20 MG IV PUSH (11:42)
== END 2023-05-31 23:59 | disposition home or self-care (01) ==
LOC: ANHCPCTRAN 07:41
PROVIDERS: PCP Nurse Practitioner; Visit Provider Internal Medicine Hematology & Oncology
DX: N19 Unspecified kidney failure (principal); D63.1 Anemia in chronic kidney disease
CPT/HCPCS: 36415; 36430; 86850; 86900; 86901; 86923; 96374; A9270; J1940; J7050; P9016

== ENCOUNTER 2023-05-30 11:23 | Outpatient (CLI) | payer MEDICARE, MEDICAID, SELFPAY ==
[2023-05-30 16:49] LABS: Free T4 Free Thyroxine 0.94 ng/mL (0.78-2.19)
[2023-05-30 17:42] LABS: Cholesterol 157 mg/dL (0-200); HDL Direct 70 mg/dL; Triglycerides 127 mg/dL (<150)
[2023-05-30 17:53] LABS: LDL Cholesterol Direct 71 mg/dL
[2023-06-03 07:40] LABS: Triiodothyronine T3 Free 2.7 pg/mL (2.3-4.2)
== END 2023-05-30 11:24 | disposition home or self-care (01) ==
LOC: ANHLAB 11:26
PROVIDERS: PCP Nurse Practitioner; Visit Provider Internal Medicine Hematology & Oncology
DX: E78.5 Hyperlipidemia, unspecified (principal); E11.9 Type 2 diabetes mellitus without complications
CPT/HCPCS: 36415; 80061; 83036; 84439; 84443; 84481

== ENCOUNTER 2023-06-08 00:48 | Day surgery (SDC) | payer MEDICARE, MEDICAID, SELFPAY ==
[2023-06-07 15:16] VITALS: BMI 29.7
--- NOTE | ~2023-06-08 | BM_ITS ---
EXAMINATION: CCL bone marrow asp w bx diag DATE: 06/08/2023 09:55 INDICATION: Multiple myeloma. TECHNIQUE: A time-out was performed to verify the patient's name, date of , and procedure to b e performed. The procedure including the risks, benefits, and alternatives was discussed with the pat ient. Risks discussed included bleeding and infection. The patient understood the risks and agreed to proceed. The skin overlying the left ilium was prepped and draped in usual sterile fashion. Anesth etic was administered with 1% lidocaine subcutaneously. Moderate sedation was achieved with 1 mg Vers ed IV and 50 mcg fentanyl IV. An 11 gauge needle was inserted into the ilium with fluoroscopic karen nce. Bone marrow was aspirated. An 8 gauge needle was then inserted into the ilium with fluoroscopic guidance. A core bone marrow biopsy was obtained. There were no immediate complications. Fluoroscopy exposure time was 0.0 minutes. The total number of images was 11. FINDINGS: Real-time fluoroscopy demonstrates a marker overlying the left posterior superior iliac spi ne. IMPRESSION: 1. Fluoro-guided bone marrow aspiration. 2. Fluoro-guided bone marrow core biopsy. Reviewed, dictated and finalized at location A. WAY [facility]
[2023-06-08 07:48] VITALS: BP 145/63; PULSE 66; RESP 14; TEMP 36.8; O2SAT 100
[2023-06-08 07:53] LABS: Basophils Absolute Auto 0.1 K/mm3 (0.0-0.1); Basophils Percent Auto 2.2 % (0.2-1.2); Eosinophils Absolute Auto 0.1 K/mm3 (0-0.3); Eosinophils Percent Auto 2.2 % (0-4.4); Hematocrit 29.5 % (37.0-47.0); Hemoglobin 9.2 g/dL (12.0-15.0); Immature Granulocyte Absolute 0.02 K/mm3 (0.00-0.031); Immature Granulocyte Percent A 0.4 % (0-0.5); Lymphocytes Absolute Auto 1.17 K/mm3 (0.9-3.2); Lymphocytes Percent Auto 23.9 % (18.3-44.2); Mean Corpuscular HGB Conc 31.2 g/dl (32-36); Mean Corpuscular Hemoglobin 33.5 pg (26-34); Mean Corpuscular Volume 107.3 fl (80-100); Monocytes Absolute Auto 0.8 K/mm3 (0.1-0.6); Monocytes Percent Auto 15.3 % (2.6-8.5); Neutrophils Absolute Auto 2.7 K/mm3 (1.3-6.7); Platelet Count Result 191 k/mm3 (150-375); Red Blood Count 2.75 M/mm3 (4.2-5.4); Red Cell Distribution Width 17.3 % (11.5-14.5); White Blood Count 4.9 K/mm3 (4.5-10.0)
[2023-06-08 08:04] LABS: INR 0.9; Prothrombin Time 12.8 Seconds (11.1-14.7)
[2023-06-08 08:23] LABS: Anisocytosis 1+ (NORMAL); Hypochromasia 1+ (NORMAL); Macrocytosis 1+ (NORMAL); Platelet Estimate Adequate (Adequate); Schistocytes Rare (NORMAL)
--- NOTE | 2023-06-08 09:10 | WPDMODSED ---
Moderate Sedation Note-Pt Data Patient Data Diagnosis: Multiple myeloma. Present Complaint: Multiple myeloma. Procedure to be performed/Plan: Fluoro-guided bone marrow biopsy of ilium. Allergies Allergy/AdvReac Type Severity Reaction Status Date / Time GÓMEZ Inhibitors Allergy Intermediate Hives Verified 06/08/23 07:38 codeine AdvReac Intermediate Chest Pain Verified 06/08/23 07:38 tiotropium AdvReac Intermediate Unknown Verified 06/08/23 07:38 Home Medications Medication Instructions Recorded Confirmed Type aspirin 81 mg tablet,delayed 81 mg PO DAILY 03/19/19 06/07/23 History release (Adult Low Dose Aspirin) budesonide-formoterol HFA 80 2 puff inhalation Q12H #10.2 grams 11/18/21 06/07/23 Rx mcg-4.5 mcg/actuation aerosol inhaler (Symbicort) calcium 500 mg tablet 500 mg PO DAILY 02/07/23 06/07/23 History oxybutynin chloride 5 mg tablet 5 mg PO DAILY #90 tabs 04/19/23 06/08/23 Rx benzonatate 100 mg capsule 100 mg PO TID PRN cough #30 caps 04/25/23 06/07/23 Rx albuterol sulfate 90 mcg/actuation 1 inh inhalation Q4H PRN shortness 05/25/23 06/07/23 Rx aerosol inhaler (ProAir HFA) of breath #8.5 grams carvedilol 6.25 mg tablet 6.25 mg PO BID #180 tabs 05/25/23 06/08/23 Rx fluticasone 100 mcg-salmeterol 50 1 inh inhalation BID #60 ea 05/25/23 06/07/23 Rx mcg/dose blistr powdr for inhalation (Advair Diskus) losartan 25 mg tablet 25 mg PO DAILY #90 tabs 05/25/23 06/08/23 Rx omeprazole 40 mg capsule,delayed 40 mg PO BID #180 caps 05/25/23 06/08/23 Rx release Adults Multivitamin 1 tablet PO DAILY 06/07/23 06/07/23 History acyclovir 400 mg tablet 400 mg PO TID 06/07/23 06/07/23 History ferrous sulfate 325 mg (65 mg 325 mg PO DAILY 06/07/23 06/07/23 History iron) tablet (FeroSul) metformin 500 mg tablet 1,000 mg PO BID 06/07/23 06/07/23 History pravastatin 40 mg tablet 40 mg PO HS 06/07/23 06/07/23 History sulfamethoxazole 800 1 tablet PO BID 06/07/23 06/07/23 History mg-trimethoprim 160 mg tablet trazodone 50 mg tablet 50 mg PO HS PRN Insomnia 06/07/23 06/07/23 History venlafaxine 150 mg 150 mg PO DAILY 06/07/23 06/08/23 History capsule,extended release 24 hr Sedation/Anesthesia: No previous sedation/anesthesia problems (including family history). [facility] Past Medical History Medical History Anemia Bronchitis CAD (coronary artery disease) Cholecystectomy planned 1980 Chronic pain CKD (chronic kidney disease) COPD (chronic obstructive pulmonary disease) Heart attack 2010 Hyperlipidemia Hypertension Iron deficiency anemia Lump in neck Major depressive disorder Obesity Obesity (BMI 30.0-34.9) Type 2 diabetes mellitus Surgical History Surgical History S/P triple vessel bypass 2016 Family History Family History Father Diabetes mellitus Family history of congestive heart failure Mother Hypertension Social History Social History Social History: Caffeine-coffee/soda Smoking packs per day: 0.75 Smoking cigarettes per day: 15.0 Years smoked: 40 Smoking pack-years: 30.00 Smoking status: Former smoker Tobacco type: cigarettes Second hand tobacco smoke exposure: No Smoking end date: 07/13/10 Additional smoking assessment comments: 2010 Alcohol intake: former Drinks per week: 1 Alcohol use details: Pt drinks occasionally. Substance use: current Substance use type: marijuana Other substance usage details: couple times per week Last use: 11/01/22 Lack of Transportation: YES Lack of Food: Sometimes True Current Housing: I Have Housing Concerned About Future Housing: No Difficulty Paying Gas/Electric Bills: YES Difficulty Paying for Meds: YES Currently Unemployed: No Education: [employer]
[2023-06-08 09:50] VITALS: BP 169/62; PULSE 65; RESP 19; O2SAT 99
[2023-06-08 10:00] VITALS: BP 177/66; PULSE 63; RESP 14; O2SAT 100
[2023-06-08 10:15] VITALS: BP 187/67; PULSE 68; RESP 12; O2SAT 100
[2023-06-08 10:30] VITALS: BP 175/57; PULSE 63; RESP 17; O2SAT 100
[2023-06-08 10:50] VITALS: BP 164/77; PULSE 68; RESP 13; O2SAT 100
== END 2023-06-08 11:05 | disposition home or self-care (01) ==
PROVIDERS: PCP Nurse Practitioner; Visit Provider Radiology Diagnostic Radiology
DX: C90.00 Multiple myeloma not having achieved remission (principal); D53.9 Nutritional anemia, unspecified; I25.10 Atherosclerotic heart disease of native coronary artery without angina pectoris; I12.9 Hypertensive chronic kidney disease with stage 1 through stage 4 chronic kidney disease, or unspecified chronic kidney disease; E11.22 Type 2 diabetes mellitus with diabetic chronic kidney disease; N18.9 Chronic kidney disease, unspecified; I25.2 Old myocardial infarction; J44.9 Chronic obstructive pulmonary disease, unspecified; E78.5 Hyperlipidemia, unspecified; F32.9 Major depressive disorder, single episode, unspecified; E66.9 Obesity, unspecified; Z68.29 Body mass index [BMI] 29.0-29.9, adult; Z79.51 Long term (current) use of inhaled steroids; Z79.82 Long term (current) use of aspirin; Z95.1 Presence of aortocoronary bypass graft; Z87.891 Personal history of nicotine dependence; F12.90 Cannabis use, unspecified, uncomplicated
CPT/HCPCS: 36415; 38222; 85025; 85610; 88305; 88311; 88313; 88341; 88342; J1642; J2250; J3010; J7040

== ENCOUNTER 2023-08-13 21:54 | Emergency (ER) | payer MEDICARE, MEDICAID, SELFPAY ==
[2023-08-13 22:13] VITALS: BP 185/62; PULSE 77; RESP 16; TEMP 36.4; O2SAT 100
--- NOTE | 2023-08-13 23:10 | PC.NURSE ---
Pt placed in family room post triage d/t potential neutropenia/on chemo.
[2023-08-13 23:23] VITALS: BP 168/53; PULSE 63; RESP 16; O2SAT 100
[2023-08-13] MEDS: methylPREDNISolone SOD SUCC 125 MG VIAL IV PUSH (23:54)
[2023-08-13] MEDS: diphenhydrAMINE HCl INJ 50 MG/ML VIAL IV PUSH (23:55)
--- NOTE | 2023-08-13 23:55 | ED.GENADULT ---
HPI - General Adult General Chief complaint: Skin/Abscess/Foreign Body Stated complaint: rash over body, chemo patient Time Seen by Provider: 08/13/23 23:18 History of Present Illness HPI narrative: Patient is a 63-year-old female who presents emergency department with chief complaint of rash. The patient reports he is currently undergoing chemotherapy for multiple myeloma and reports that she developed a rash over her body that was red raised and itching the patient states she has had this happen before whenever she was taking a chemo and reports she was told to stop the chemo by her oncologist patient states that she continues to have symptoms even though previously had resolved by this time the patient states she has no shortness of breath denies swelling in her oropharynx denies stridor and denies wheezing. Related Data Home Medications Medication Instructions Recorded Confirmed aspirin 81 mg tablet,delayed 81 mg PO DAILY 03/19/19 07/25/23 release (Adult Low Dose Aspirin) calcium 500 mg tablet 500 mg PO DAILY 02/07/23 07/25/23 Adults Multivitamin 1 tablet PO DAILY 06/07/23 07/25/23 acyclovir 400 mg tablet 400 mg PO TID 06/07/23 07/25/23 ferrous sulfate 325 mg (65 mg 325 mg PO DAILY 06/07/23 07/25/23 iron) tablet (FeroSul) metformin 500 mg tablet 1,000 mg PO BID 06/07/23 07/25/23 pravastatin 40 mg tablet 40 mg PO HS 06/07/23 07/25/23 sulfamethoxazole 800 1 tablet PO BID 06/07/23 07/25/23 mg-trimethoprim 160 mg tablet trazodone 50 mg tablet 50 mg PO HS PRN Insomnia 06/07/23 07/25/23 venlafaxine 150 mg 150 mg PO DAILY 06/07/23 07/25/23 capsule,extended release 24 hr Allergies Allergy/AdvReac Type Severity Reaction Status Date / Time GÓMEZ Inhibitors Allergy Intermediate Hives Verified 08/13/23 23:12 codeine AdvReac Intermediate Chest Pain Verified 08/13/23 23:12 tiotropium AdvReac Intermediate Unknown Verified 08/13/23 23:12 Review of Systems Review of Systems: A 10 system review of systems was completed on the patient and is negative except for what is stated in the HPI. Nursing and ancillary documentation was reviewed. [facility] Past Medical History Medical History Anemia Bronchitis CAD (coronary artery disease) Cholecystectomy planned 1980 Chronic pain CKD (chronic kidney disease) COPD (chronic obstructive pulmonary disease) Heart attack 2010 Hyperlipidemia Hypertension Iron deficiency anemia Lump in neck Major depressive disorder Obesity Obesity (BMI 30.0-34.9) Type 2 diabetes mellitus Surgical History Surgical History S/P triple vessel bypass 2016 Family History Family History Father Diabetes mellitus Family history of congestive heart failure Mother Hypertension Social History Social History Social History: Caffeine-coffee/soda Smoking packs per day: 0.75 Smoking cigarettes per day: 15.0 Years smoked: 40 Smoking pack-years: 30.00 Smoking status: Former smoker Tobacco type: cigarettes Second hand tobacco smoke exposure: No Smoking end date: 07/13/10 Additional smoking assessment comments: 2010 Alcohol intake: former Drinks per week: 1 Alcohol use details: Pt drinks occasionally. Substance use: current Substance use type: marijuana Other substance usage details: couple times per week Last use: 11/01/22 Lack of Transportation: YES Lack of Food: Sometimes True Current Housing: I Have Housing Concerned About Future Housing: No Difficulty Paying Gas/Electric Bills: YES Difficulty Paying for Meds: YES Currently Unemployed: No Education: High School Diploma/GED Difficulty w/ Childcare or Family Care: No Living arrangements: with family Gender identity (if verbaliz
[2023-08-14 00:06] LABS: Hematocrit 32.5 % (37.0-47.0); Hemoglobin 10.3 g/dL (12.0-15.0); Mean Corpuscular HGB Conc 31.7 g/dl (32-36); Mean Corpuscular Hemoglobin 34.4 pg (26-34); Mean Corpuscular Volume 108.7 fl (80-100); Mean Platelet Volume 10.6 fl (7.4-10.4); Platelet Count Result 191 k/mm3 (150-375); Red Blood Count 2.99 M/mm3 (4.2-5.4); Red Cell Distribution Width 13.9 % (11.5-14.5); White Blood Count 5.2 K/mm3 (4.5-10.0)
[2023-08-14 00:51] LABS: Band Neutrophils Percent 2 % (0-6); Basophils Percent Manual 0 % (0-1); Eosinophils Percent Manual 20 % (0-4); Lymphocytes Percent Manual 41 % (18-44); Monocytes Percent Manual 4 % (3-9); Total Cells Counted 100
[2023-08-14 00:52] LABS: Metamyelocytes Percent 0 %; Myelocytes Percent 0 %; Promyelocytes Percent 0 %
[2023-08-14 00:53] LABS: Anisocytosis 1+; Ovalocytes 1+; Platelet Estimate Adequate (Adequate); Schistocytes None Seen; Smudge Cells PRESENT
[2023-08-14 00:54] LABS: Alanine Aminotransferase 14 U/L (6-35); Albumin Level 3.4 g/dL (3.5-5.1); Alkaline Phosphatase 48 U/L (38-126); Anion Gap 8 mmol/L (4-12); Aspartate Amino Transferase 18 U/L (14-36); Bilirubin,Total 0.3 mg/dL (0.2-1.3); Blood Urea Nitrogen 31 mg/dL (7-17); Calcium 8.7 mg/dL (8.4-10.2); Carbon Dioxide 18 mmol/L (22-30); Chloride 112 mmol/L (98-107); Estimated CRCL calculation 33 ml/min; Estimated Glomerular Filt Rate 35; Glucose 121 mg/dL (65-110); Potassium 4.2 mmol/L (3.4-5.0); Sodium 138 mmol/L (137-145)
[2023-08-14 00:54] LABS: Neutrophils Absolute Manual 1.82 K/mm3 (1.7-7.2); Neutrophils Percent Manual 33 % (46-73)
[2023-08-14 00:57] LABS: Atypical Lymphocytes Present
[2023-08-14 01:37] VITALS: BP 163/60; PULSE 77; RESP 18; O2SAT 100
== END 2023-08-14 01:37 | disposition home or self-care (01) ==
PROVIDERS: Emergency Provider Emergency Medicine; PCP Nurse Practitioner
DX: L30.9 Dermatitis, unspecified (principal); C90.00 Multiple myeloma not having achieved remission; I12.9 Hypertensive chronic kidney disease with stage 1 through stage 4 chronic kidney disease, or unspecified chronic kidney disease; E11.22 Type 2 diabetes mellitus with diabetic chronic kidney disease; N18.9 Chronic kidney disease, unspecified; I25.10 Atherosclerotic heart disease of native coronary artery without angina pectoris; I25.2 Old myocardial infarction; J44.9 Chronic obstructive pulmonary disease, unspecified; E78.5 Hyperlipidemia, unspecified; E66.9 Obesity, unspecified; D50.9 Iron deficiency anemia, unspecified; Z68.29 Body mass index [BMI] 29.0-29.9, adult; F32.9 Major depressive disorder, single episode, unspecified; Z95.1 Presence of aortocoronary bypass graft; Z87.891 Personal history of nicotine dependence; Z90.49 Acquired absence of other specified parts of digestive tract; Z79.84 Long term (current) use of oral hypoglycemic drugs; Z79.82 Long term (current) use of aspirin
CPT/HCPCS: 36415; 80053; 85025; 96374; 96375; 99284; J1200; J2919

== ENCOUNTER 2023-11-28 12:11 | Outpatient (CLI) | payer MEDICARE, MEDICAID, SELFPAY ==
[2023-11-28 14:09] LABS: Hemoglobin A1C 6.5 % (<5.7)
== END 2023-11-28 12:12 | disposition home or self-care (01) ==
LOC: ANHLAB 12:13
PROVIDERS: PCP Nurse Practitioner; Visit Provider Nurse Practitioner
DX: E11.22 Type 2 diabetes mellitus with diabetic chronic kidney disease (principal); N18.9 Chronic kidney disease, unspecified
CPT/HCPCS: 36415; 83036

== ENCOUNTER 2025-01-16 13:57 | Outpatient (CLI) | payer MEDICARE, MEDICAID, SELFPAY ==
--- OUTSIDE RECORDS SUMMARY | 2002-07-05 10:30 | XMS_ITS | Continuity of Care Document ---
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 [address] [facility], [place], [address], [place]. tel: [phone] Family History Family Member Type Diagnosis Age At Onset No Information Payers Payer name Insurance type Covered republican ID Authoriza tion(s) [facility] Out Of State [id number] Social History Type Description Quantity Date Captured Comments Sex Female Smoking Status No Information Chief Complaint And Reason For Visit No Information Reason For Referral Reason For Referral No Information History Of Present Illness Encounter Date Complaint History Of Prese nt Illness No Information Functional Status Date Functional Assessmen t No Information Instructions Date Instruction Additional Infor mation No Information Assessments Type Assessment Date No Information Patient Care Teams Name Effective Dates (start - stop) Status Members No Information
--- OUTSIDE RECORDS SUMMARY | 2025-01-16 15:44 | XMS_ITS | Encounter Summary ---
Author Organization [facility] [employer] [facility] Address [address] [place] [address] Care Team Providers Care Merchandise Adjustment Clerk Name Role Phone David Vizcaino DO Primary Care Provider Encounter Details Date Type Department Care Team (Late Contact Info) Description 01/13/2025 Orders Only [facility] Oncology and Hematology - [address] [place] [address] Calvin Romo MD [facility] [address] [place] [id number] Social History Tobacco Use Types Packs/Day Years Used Date Smoking Tobacco: Former Cigarettes Smokeless Tobacco: Former Quit: 07/13/2010 Alcohol Use Standard Drinks/Week Comments Not Currently 0 (1 standard drink = 0.6 oz pur e alcohol) occasional Comments No Sex and Gender Information Value Date Recorded Sex Assigned at Not on file Legal Sex Female 1:05 PM CDT Gender Identity Not on file Sexual Orientation Not on file documented as of this encounter Plan of Treatment Upcoming Encounters Date Type Department Care Team (Late Contact Info) Description 02/19/2025 1:00 PM CDT Office Visit [facility] Oncology and Hematology - [address] [place] [address] Calvin Romo MD [address] [place] [phone] documented as of this encounter Procedures Procedure Name Priority Date/Time Associated Diagnosis Comments CBC WITH AUTODIFFERENTIAL Routine 2024 12:44 PM CDT documented in this encounter Results * CBC WITH AUTODIFFERENTIAL (01/10/2025 12:44 PM CDT) Blood us Calvin Romo MD HEMATOLOGY ORDERABLES Final Res ult documented in this encounter Visit Diagnoses Not on filedocumented in this encounter Care Teams Merchandise Adjustment Clerk Relationship Specialty Start Date End Date David Vizcaino DO PCP - General Internal Medicine 09/28/16 documented as of this encounter
--- OUTSIDE RECORDS SUMMARY | 2025-01-16 15:44 | XMS_ITS | Clinical Summary ---
Author Organization [facility] Address [address] [place] [phone] Phone Care Team Providers Care Vocational Teacher Name Role Phone MeresurajDavid zarate DO Primary Care Provider [phone] Allergies Active Allergy Reactions Criticality Noted Date Comments Chlorhexidine Itching,Rash Medium 09/29/2016 For preop shower scrub Codeine Shortness of breath High 09/27/2016 Other reaction(s): Chest tightness Other reaction(s): Chest tightness Povidone-Iodine Hives High 11/18/2016 Medications aspirin (ST OMAR) 81 MG EC tablet 81 mg 1 Active budesonide-form oterol (SYMBICORT) 80-4.5 MCG/ACT inhaler INHALE 2 PUFFS BY MOUTH EVERY 12 HOURS 2 Active carvedilol (COREG) 6.25 MG tablet Take 6.25 mg by mouth 2 (two) times a day 2 Active FeroSul 325 (65 Fe) MG tablet TAKE ONE TABLET BY MOUTH DAILY AT 9AM 2 Active benzonatate (TESSALON) 100 MG capsule TAKE 1 CAPSULE BY MOUTH THREE TIMES DAILY NEEDED FOR COUGH 2 Active Levemir FlexTouch 100 UNIT/ML injection INJECT 8 UNITS UNDER THE SKIN EVERY NIGHT AT BEDTIME . REPLACING BASAGLAR 2 Active Lancets (OneTouch Delica Plus [id number]) misc USE TO CHECK BLOOD SUGAR TID 0 Active losartan (COZAAR) 25 MG tablet Take 25 mg by mouth 1 (one) time each day 2 Active metFORMIN (GLUCOPHAGE) 500 MG tablet Take 1,000 mg by mouth 2 (two) times a day 2 Active omeprazole (PriLOSEC) [address] capsule Take 40 mg by mouth 2 (two) times a day 2 Active oxybutynin (DITROPAN) 5 MG tablet TAKE ONE TABLET BY MOUTH TWICE DAILY @9AM 5PM 2 Active pravastatin (PRAVACHOL) 40 MG tablet 2 Active traZODone (DESYREL) 50 MG tablet TAKE 1-2 TABLETS BY MOUTH 30-60 MINUTES BEFORE BEDTIME 2 Active venlafaxine XR (EFFEXOR-XR) 150 MG 24 hr capsule Take 150 mg by mouth 1 (one) time each day 2 Active Active Problems Problem Noted Date Diagnosed Date 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 History of coronary artery bypass grafting 11/18 Gastroesophageal reflux disease 09/27/2016 Hyperlipidemia 09/27/2016 Type 2 diabetes mellitus 09/27/2016 Chronic obstructive pulmonar y disease with acute lower respiratory infection 05/13/2015 Overview (12/19/2021): Chronic obstructive pulmonary disease, unspecified Last Assessment & Plan: COPD is stable, remains a nonsmoker Benign hypertension 02/25/2013 Overview (12/19/2021): HYPERTENSION NOS Last Assessment & Plan: BP at goal Chronic ischemic heart disease 02/25/2013 Overview (12/19/2021): CHR ISCHEMIC HRT DIS NOS Coronary atherosclerosis 02/25/2013 Overview (12/19/2021): CRNRY ATHRSCL NATVE VSSL Last Assessment & Plan: Two thousand eleven: Non STEMI, WILFRED in the RCA and CX Several evaluations for atypical chest pain negative Nitrate responsive chest pain in September 2016, CABG for left main September 2016, [facility] Feeling very well now with no angina Disease type AND/OR category unknown 02/25/2013 Overview (12/19/2021): STATUS-POST PTCA Acute subendocardial infarction 08/09/2010 Overview (12/19/2021): SUBENDO INFARCT, SUBSEQ Family History Medical History Relation Comments Congestive heart failure Father Diabetes mellitus Father Hypertension Mother No Known Problems Paternal Grandmother Relation Status Comments Father Mother Paternal Grandmother Social History Tobacco Use Types Packs/Day Years Used Date Smoking Tobacco: Former Cigarettes Q uit: 2010 Smokeless Tobacco: Never Alcohol Use Standard Drinks/Week Comments Yes 1 (1 standard drink = 0.6 oz pur e alcohol) Comments Unknown Sex and Gender Information Value Date Recorded Sex Assigned at Not on file Legal Sex Female 10:29 AM MDT Gender Identity Not on file Sexual Orientation Not on file Last Filed Vital Signs Vital Sign Reading Time Taken Comments Blood Pressure 148/80 12/22/2021 10:08 AM CDT Pulse - - Temperature 36.3 C (97.3 F) 12/22/2021 10:08 AM CDT Respiratory Rate 18 12/22/2021 10:08 AM CDT Oxygen Saturation - - Inhaled Oxygen Concentration - - Weight 76.2 kg (168 lb) 12/22/2021 10:08 AM CDT Height 160 cm (5' 3) 12/22/2021 10:08 AM CDT Body Mass Index 29.76 12/22/2021 10:08 AM CDT Plan of Treatment Health Maintenance Due Date Last Done Comments Pneumococcal PPSV23/PCV13 65 + Years / Low and Medium Risk (1 of 2 - PCV) 2009 Influenza Vaccine (#1) 2025 Insurance [facility] Member Subscriber Plan / Payer (Ef fective 2021-Present) Name:Eva Li Member ID:[id number] PPO Relation to Subscriber:Self Name:Eva Li Subscriber ID:[id number] PPO Payer ID:[id number] (NAIC) Type:Not on file Address: [address] [address] [place] [address] MEDICAID - [place] MEDICARE Care Teams Vocational Teacher Relationship Specialty Start Date End Date David Vizcaino DO [address] [place] [id number] PCP - General Internal Medicine 12/13/21
--- OUTSIDE RECORDS SUMMARY | 2025-01-16 15:44 | XMS_ITS | Clinical Summary ---
Author Organization [facility] Address [address] [place] [address] Phone Care Team Providers Care Repair Tech Name Role Phone David Vizcaino DO Primary Care Provider Allergies Active Allergy Reactions Criticality Noted Date Comments Chlorhexidine Gluconate Rash,Itching Medium 09/29/2016 For preop shower scrub Codeine Shortness of Breath/Wheezing High 09/27/2016 Other reaction(s): Chest tightness Povidone-Iodine Hives High 11/18/2016 Medications metFORMIN (GLUCOPHAGE) 500 mg tablet Take 500 mg by mouth 2 times daily with meals. Active omeprazole (PriLOSEC) 40 mg Capsule, Delayed Release(E.C.) Take 40 mg by mouth daily. Active oxybutynin chloride (DITROPAN) 5 mg tablet Take 5 mg by mouth 2 times daily. Active pravastatin (PRAVACHOL) 40 mg tablet Take 40 mg by mouth late in the day. Active fluticasone-david meterol (ADVAIR DISKUS) 100-50 mcg/dose disk inhaler Take 1 Puff by inhalation 2 times daily. Active traZODone (DESYREL) 50 mg tabletIndicatio ns:1-2 tabs as needed for sleep Take 50 mg by mouth daily at bedtime. Active carvedilol (COREG) 6.25 mg tablet Take 1 Tablet (6.25 mg) by mouth 2 times daily. 14 Tablet 7 Active aspirin (SARWAT) 325 mg tablet Take 1 Tablet (325 mg) by mouth daily. 7 Active carvedilol (COREG) 6.25 mg tablet Take 1 Tablet (6.25 mg) by mouth 2 times daily. 30 Tablet 1 7 Active ferrous sulfate 325 mg (65 mg iron) tablet TAKE 1 TABLET BY MOUTH ONCE DAILY. 0 Active Basaglar KwikPen U-100 Insulin 100 unit/mL (3 mL) pen syringe 4 Units. 0 Active OneTouch Delica Plus Lancet 33 gauge USE TO CHECK BLOOD SUGAR TID 0 Active TRUEplus Pen Needle 31 gauge x 3/16 Needle USE DIRECTED 0 Active venlafaxine (EFFEXOR) 75 mg tablet Take 75 mg by mouth daily. 0 Active benzonatate (TESSALON) 100 mg capsule TAKE 1 CAPSULE BY MOUTH THREE TIMES DAILY NEEDED FOR COUGH 2 Active Levemir FlexTouch U-100 Insuln 100 unit/mL (3 mL) pen syringe INJECT 8 UNITS UNDER THE SKIN EVERY NIGHT AT BEDTIME . REPLACING BASAGLAR 2 Active Symbicort 80-4.5 mcg/actuation HFA Aerosol Inhaler 2 Active ondansetron (ZOFRAN ODT) 8 mg Tablet, Rapid DissolveIndicat ions:Multiple myeloma, remission status unspecified (CMS/HCC) Dissolve 1 tablet on top of tongue then swallow with saliva every 8 hours as needed for nausea or vomiting 30 Tablet 2 3 Active dexAMETHasone (DECADRON) 4 mg tabletIndicatio ns:Multiple myeloma, remission status unspecified (CMS/HCC) TAKE 5 TABLETS BY MOUTH 1 TIME A WEEK 5 Tablet 5 4 Active levoFLOXacin (LEVAQUIN) 500 mg tablet Take 1 Tablet (500 mg) by mouth daily. 7 Tablet 4 Active hydrOXYzine HCL (ATARAX) 25 mg tablet Take 1 Tablet (25 mg) by mouth every 8 hours as needed for Itching. 30 Tablet 1 4 Active acyclovir (ZOVIRAX) 400 mg tabletIndicatio ns:Anemia of chronic renal failure, stage 3b (CMS/HCC) TAKE 1 TABLET(400 MG) BY MOUTH THREE TIMES DAILY 90 Tablet 5 Active cyanocobalamin (VITAMIN B-12) 1,000 mcg/mL Solution Inject 1 mL (1,000 mcg) by intramuscular injection every 21 days. 1 mL 7 5 Active Syringe with Needle, Disp, 1 mL 27 x 1/2 Syringe Use with B12 injections 1 Each 7 5 Active Wegovy 0.25 mg/0.5 mL Pen Injector Inject 0.25 mg by subcutaneous injection every 7 days. 5 Active losartan (COZAAR) 100 mg tablet Take 1 Tablet by mouth daily. 5 Active sulfamethoxazol e-trimethoprim (BACTRIM DS) 800-160 mg tabletIndicatio ns:Anemia of chronic renal failure, stage 3b (CMS/HCC) TAKE 1 TABLET BY MOUTH TWICE DAILY ON DAYS MONDAY,, AND MONDAY 24 Tablet 5 5 Active gabapentin (NEURONTIN) 300 mg capsule Take 1 Capsule (300 mg) by mouth 3 times daily. 90 Capsule 5 Active Active Problems Problem Noted Date Diagnosed Date Anemia of chronic renal failure, stage 3 (modera te) 02/04/2022 Plasma cell disorder 05/18/2020 CAD (coronary atherosclerotic disease) 7 Benign hypertension 09/27/2016 Hyperlipidemia 09/27/2016 Chronic obstructive pulmonary disease 09/27/2016 DM (diabetes mellitus), type 2 09/27/2016 GERD (gastroesophageal reflux disease) 7 Encounters Date Type Department Care Team Description 01/13/2025 Orders Only [facility] Oncology and Hematology - [address] [place] [address] Calvin Romo MD 01/07/2025 Abstract [facility] Hematology - [address] [place] [address] Calvin Romo MD 01/06/2025 Orders Only [facility] Hematology - [address] [place] [address] Calvin Romo MD Anemia of chronic renal failure, stage 3b (CMS/HCC) 12/30/2024 Orders Only [facility] and Hematology - [address] [place] [id number] Calvin Romo MD Anemia of chronic renal failure, stage 3b (CMS/HCC) 12/23/2024 Orders Only [facility] Oncology and Hematology - [address] [place] [address] Calvin Romo MD Anemia of chronic renal failure, stage 3b (CMS/HCC) 12/16/2024 Orders Only [facility] Hematology - [address] [place] [address] Calvin Romo MD Anemia of chronic renal failure, stage 3b (CMS/HCC) 12/10/2024 External Device Data STL ABSTRACTION Provider, Abstract 12/10/2024 Orders Only [facility]cology and Hematology - [address] [place] [address] Calvin Romo MD 12/09/2024 Orders Only [facility]cology and Hematology - [address] Calvin Romo MD Anemia of chronic renal failure, stage 3b (CMS/HCC) 12/02/2024 Orders Only [facility]cology and Hematology - [address] [place] [id number] Calvin Romo MD Anemia of chronic renal failure, stage 3b (CMS/HCC) 11/25/2024 Orders Only [facility] and Hematology - [address] Calvin Romo MD Anemia of chronic renal failure, stage 3b (CMS/HCC) 11/20/2024 External Device Data STL ABSTRACTION Provider, Abstract 11/19/2024 11:45 AM CDT Office Visit [facility]cology and Hematology - [address] Calvin Romo MD Multiple myeloma, remission status unspecified ([facility]/HCC) (Primary Dx); Chronic anemia 11/19/2024 External Device Data STL ABSTRACTION Provider, Abstract 11/18/2024 Orders Only [facility] and Hematology - [address] Calvin Romo MD Anemia of chronic renal failure, stage 3b (CMS/HCC) 11/15/2024 Orders Only [facility] and Hematology - [address] Calvin Romo MD 11/11/2024 Orders Only [facility] Hematology - [address] Calvin Romo MD Anemia of chronic renal failure, stage 3b (CMS/HCC) 11/04/2024 Orders Only [facility] Hematology - [address] Calvin Romo MD Anemia of chronic renal failure, stage 3b (CMS/HCC) 10/28/2024 Orders Only [facility] Hematology - [address] Calvin Romo MD Anemia of chronic renal failure, stage 3b (CMS/HCC) 10/23/2024 Refill [facility] Hematology - [address] [place] [id number] Calvin Romo MD 10/22/2024 External Device Data STL ABSTRACTION Provider, Abstract 10/22/2024 Abstract [facility] Hematology - [address] [place] [id number] Calvin Romo MD 10/21/2024 Orders Only [facility] Hematology - [address] [place] [id number] Calvin Romo MD Anemia of chronic renal failure, stage 3b (CMS/HCC) from Last 3 Months Family History Medical History Relation Name Comments Heart Failure Father Cancer Sister 1 Relation Name Status Comments Daughter 1 Alive Daughter 2 Alive Daughter 3 Alive Father Mother Sister 1 Sister 2 Alive Son 1 Alive Son 2 Alive Social History Tobacco Use Types Packs/Day Years Used Date Smoking Tobacco: Former Cigarettes Smokeless Tobacco: Former Quit: 07/13/2010 Tobacco Cessation:Counseling Given: Not Answered Alcohol Use Standard Drinks/Week Comments Not Currently 0 (1 standard drink = 0.6 oz pur e alcohol) occasional Comments No Sex and Gender Information Value Date Recorded Sex Assigned at Not on file Legal Sex Female 1:05 PM CDT Gender Identity Not on file Sexual Orientation Not on file Last Filed Vital Signs Vital Sign Reading Time Taken Comments Blood Pressure 137/77 11/19/2024 11:44 AM CDT Pulse 70 11/19/2024 11:44 AM CDT Temperature 36.1 C (97 F) 11/19/2024 11:44 AM CDT Respiratory Rate 16 11/19/2024 11:44 AM CDT Oxygen Saturation 91% 11/19/2024 11:44 AM CDT Inhaled Oxygen Concentration - - Weight 72.2 kg (159 lb 3.2 oz) 11/19/2024 11:44 AM CDT Height 160 cm (5' 3) 02/04/2022 9:27 AM CDT Body Mass Index 28.2 02/04/2022 9:27 AM CDT Plan of Treatment Upcoming Encounters Date Type Department Care Team (Late st Contact Info) Description 02/19/2025 1:00 PM CDT Office Visit [facility] On[facility] and Hematology - [address] [facility] [address] [place] [address] Calvin Romo MD [address] [facility] [address] [place] [address] Health Maintenance Due Date Last Done Comments DIABETES ANNUAL FOOT EXAM 1977 DIABETES ANNUAL RETINAL EXAM 1977 DIABETES MICROALBUMIN ANNUAL SCREEN 1977 LDL CHOLESTEROL ANNUAL 1977 DTAP/TDAP/TD VACCINES (1 - Tdap) 1978 PNEUMOCOCCAL VACCINE 50+ YEARS (1 of 2 - PCV) 03/15/19 78 ZOSTER VACCINE (1 of 2) 1978 BREAST CANCER SCREENING 1999 COLORECTAL SCREENING 2004 Colorectal Cancer Screening 2004 FIT-DNA Q 3 years 2004 FIT/FOBT Q 1 year 2004 Flex Sig/CT Colonography Q 5 years 2004 DIABETES HBA1C Q 6 MONTHS 03/30/2017 09/27/2016 RSV VACCINE (60+ or ) (1 - Risk 60-74 years 1-dose series) 2019 OSTEOPOROSIS SCREENING 2024 INFLUENZA VACCINE (#1) 2024 Procedures Procedure Name Priority Date/Time Associated Diagnosis Comments CBC WITH AUTODIFFERENTIAL Routine 01/10/2025 12:44 PM CDT COMPREHENSIVE METABOLIC PANEL Routine 12/10/2024 3:53 PM CDT CBC WITH DIFFERENTIAL Routine 11/12/2024 12:55 PM CDT HEMOGLOBIN A1C Routine 09/27/2016 8:42 PM CDT from Last 3 Months or Most Recently Relevant to Health Maintenance Results * CBC WITH AUTODIFFERENTIAL (01/10/2025 12:44 PM CDT) Blood us Calvin Romo MD HEMATOLOGY ORDERABLES Final Res ult * COMPREHENSIVE METABOLIC PANEL (12/10/2024 3:53 PM CDT) Blood us Calvin Romo MD CHEMISTRY ORDERABLES Final Resu lt * CBC WITH DIFFERENTIAL (11/12/2024 12:55 PM CDT) Blood us Calvin Romo MD HEMATOLOGY ORDERABLES Final Res ult * (ABNORMAL) HEMOGLOBIN A1C (09/27/2016 8:42 PM CDT) HEMOGLOBIN A1C 7.4(H) 4.0 - 6.0 % 09/27/2016 11:06 PM CDT [facility] Comment:Note: Effective as o f 05/29/2015 a new methodology, Turbidimetric inhibition immunoassay (TINIA),has been implemented. EST. AVG GLUCOSE, A1C 166 mg/dL 09/27/2016 11:06 PM CDT [facility] Blood Venipuncture / Unknown 09/27/2016 8:42 PM CDT 09/27/2016 8:42 PM CDT us Silvina BOSE CHEMISTRY ORDERABLES Mackenzie jane Result [facility] CLIA# [id number] [address] [place] [address] from Last 3 Months or Most Recently Relevant to Health Maintenance [place] [facility] [id number] [place] [address] RX [employer] Member Subscriber Plan / Payer (Ef fective 2022-Present) Name:Eva Li Relation to Subscriber:Self Name:Eva Li Payer ID:Not on file Group ID:[id number] Type:RX Medicare Part D Address: [address] Advance Directives For more information, please contact: [phone] * Full Code (Latest Code Status on File) Date Activated Date Inactivated Comments 10/05/2016 12:48 PM 10/10/2016 1:33 PM * Full Code Date Activated Date Inactivated Comments 10/05/2016 5:56 AM 10/05/2016 12:48 PM Care Teams Repair Tech Relationship Specialty Start Date End Date David Vizcaino DO PCP - General Internal Medicine 09/28/16
--- OUTSIDE RECORDS SUMMARY | 2025-01-16 15:44 | XMS_ITS | Clinical Summary ---
Author Organization [facility] Address [address] [place] [id number] Care Team Providers Care Credit Administration Specialist Name Role Phone David Vizcaino DO Primary Care Provider [phone] Calvin Romo MD Unavailable [phone] Gibson Bonilla MD Unavailable Allergies Active Allergy Reactions Criticality Noted Date Comments Povidone-Iodine Hives Medium 11/18/2016 Chlorhexidine Itching,Rash Medium 09/29/2016 For preop shower scrub Codeine Chest tightness Medium Pneumococcal 23-[place] Ps Vaccine Hives Medium 09/09/2022 Medications aspirin 81 mg tablet take 1 tablet (81MG) by oral route every day 0 1 Active nitroglycerin (NITROSTAT) 0.[address] 1 tablet (0.4MG) by Sublingual route as needed for shortness of breath or chest tightness 25 0 1 Active carvedilol (COREG) 6.25 mg tablet take 1 tablet by oral route 2 times every day with food 60 3 3 Active oxybutynin XL (DITROPAN-XL) 5 mg 24 hr tablet Take 1 tablet (5 mg total) by mouth daily Active pravastatin (PRAVACHOL) 40 mg tablet Take 1 tablet (40 mg total) by mouth daily. 90 tablet 3 7 Active metFORMIN (GLUCOPHAGE) 500 mg tablet Take 2 tablets (1,000 mg total) by mouth 2 (two) times a day with meals Active traZODone (DESYREL) 50 mg tablet Take 2 tablets (100 mg total) by mouth nightly. 0 8 Active benzonatate (TESSALON) 100 mg capsule TAKE 1 CAPSULE BY MOUTH THREE TIMES DAILY NEEDED FOR COUGH 2 Active ferrous sulfate 325 mg (65 mg of elemental iron) tablet TAKE ONE TABLET BY MOUTH DAILY AT 9AM 0 Active venlafaxine XR (EFFEXOR-XR) 150 mg 24 hr capsule Take 1 capsule (150 mg total) by mouth daily 3 Active losartan (COZAAR) 25 mg tablet Take 1 tablet (25 mg total) by mouth daily 3 Active albuterol HFA (PROVENTIL HFA,VENTOLIN HFA,PROAIR HFA) 90 mcg/actuation inhaler Inhale 2 puffs every 6 (six) hours as needed for wheezing Active ondansetron ODT (ZOFRAN-ODT) 8 mg disintegrating tabletIndications: Multiple myeloma, remission status unspecified (HCC) Dissolve 1 tablet on top of tongue then swallow with saliva every 8 hours as needed for nausea or vomiting 3 Active dexAMETHasone (DECADRON) 4 mg tabletIndications: Multiple myeloma, remission status unspecified (HCC) TAKE 5 TABLETS BY MOUTH 1 TIME A WEEK Active acyclovir (ZOVIRAX) 400 mg tabletIndications: Multiple myeloma, remission status unspecified (HCC) Take 1 tablet (400 mg total) by mouth 3 (three) times a day 3 Active fluticasone propion-salmeteroL (ADVAIR DISKUS) 100-50 mcg/dose diskus inhalerIndications :Multiple myeloma, remission status unspecified (HCC) Inhale 1 puff 2 (two) times a day Active gabapentin (NEURONTIN) 300 mg capsuleIndications :Multiple myeloma, remission status unspecified (HCC) Take 1 capsule (300 mg total) by mouth 2 (two) times a day 3 Active Revlimid 15 mg capsuleIndications :Multiple myeloma, remission status unspecified (HCC) TAKE 1 CAPSULE BY MOUTH EVERY OTHER DAY Active omeprazole (PriLOSEC) 40 mg capsuleIndications :Multiple myeloma, remission status unspecified (HCC) Take 1 capsule (40 mg total) by mouth 2 (two) times a day Active sulfamethoxazole-t rimethoprim (BACTRIM DS) 800-160 mg per tabletIndications: Multiple myeloma, remission status unspecified (HCC) TAKE 1 TABLET BY MOUTH TWICE DAILY MONDAY, MONDAY, MONDAY Active Active Problems Problem Noted Date Diagnosed Date Multiple myeloma not having achieved remission 1 06/13/2022 Acute kidney injury 11/18/2016 Assessment & Plan (11/18/2016 7:39 PM CDT): Had acute kidney injury kidney injury after cardiac catheterization with creatinine increasing to 1.7. On 09/27/2016, prior to cath, creatinine was 1.0 Patient reports to kidneys were fine perioperatively so hopefully her creatinine has normalized. Hx of CABG 11/18/2016 Chronic obstructive pulmonary disease 05/13/2015 Overview (08/11/2016): Chronic obstructive pulmonary disease, unspecified Assessment & Plan (11/18/2016 7:33 PM CDT): COPD is stable, remains a nonsmoker Coronary arteriosclerosis in sun'aq artery 02/25 Overview (08/10/2016): CRNRY ATHRSCL NATVE VSSL Assessment & Plan (11/18/2016 7:32 PM CDT): Two thousand eleven: Non STEMI, WILFRED in the RCA and CX Several evaluations for atypical chest pain negative Nitrate responsive chest pain in September 2016, CABG for left main September 2016, [facility] Feeling very well now with no angina Chronic ischemic heart disease 02/25/2013 Overview (08/10/2016): CHR ISCHEMIC HRT DIS NOS Hypertension 02/25/2013 Overview (08/11/2016): HYPERTENSION NOS Assessment & Plan (11/18/2016 7:33 PM CDT): BP at goal Multiple-type hyperlipidemia 02/25/2013 Overview (08/11/2016): MIXED HYPERLIPIDEMIA Assessment & Plan (11/18/2016 7:36 PM CDT): 07/2015: Cholesterol 125, LDL 45, TG 234 No other recent labs available Post percutaneous transluminal coronary angiopla sty 02/25/2013 Overview (08/11/2016): STATUS-POST PTCA Acute subendocardial infarction 08/09/2010 Overview (08/11/2016): SUBENDO INFARCT, SUBSEQ Surgical History Surgery Date Site/Laterality Comments CORONARY ANGIOPLASTY CORONARY ARTERY BYPASS GRAFT CHOLECYSTECTOMY Medical History Medical History Date Comments Adiposity Obesity Hx Other Medical Diabetes Type I I Chronic obstructive pulmonar y disease (HCC) COPD Hx Other Medical 2010 CT brain - hypo densities of white matter Hypertension Acid reflux Cholelithiasis Myocardial infarction acute Diabetes mellitus (HCC) Coronary artery disease Hyperlipidemia Multiple myeloma Family History Medical History Relation Name Comments Diabetes Father Heart disease Father Heart failure Father Hypertension Father Dementia Mother Cancer Sister Relation Name Status Comments Father Mother Alive Sister Social History Tobacco Use Types Packs/Day Years Used Date Smoking Tobacco: Former Cigarettes 0 07/13/1998 - 07/13/2010 Smokeless Tobacco: Never Tobacco Cessation:Counseling Given: Not Answered Alcohol Use Standard Drinks/Week Comments No 0 (1 standard drink = 0.6 oz pur e alcohol) Comments Unknown Sex and Gender Information Value Date Recorded Sex Assigned at Not on file Legal Sex Female 1:45 AM [employer] SOL[employer] ARCHITECT Gender Identity Not on file Sexual Orientation Not on file Obstetrics History Last Filed Vital Signs Vital Sign Reading Time Taken Comments Blood Pressure 162/89 04/10/2023 8:46 AM DIGITAL SOLUT[employer] ARCHITECT Pulse 89 04/10/2023 8:46 AM DIGITAL SOLUTIONS ARCHITECT Temperature 36.5 C (97.7 F) 04/10/2023 8:46 AM DIGITAL SOLUT[employer] ARCHITECT Respiratory Rate 18 04/10/2023 8:46 AM DIGITAL SOLUTIONS ARCHITECT Oxygen Saturation 100% 04/10/2023 8:46 AM D[employer]ITAL SOLUT[employer] ARCHITECT Inhaled Oxygen Concentration - - Weight 75.1 kg (165 lb 9.6 oz) 04/10/2023 8:46 A M [employer] ARCHITECT Height 157.5 cm (5' 2.01) 04/10/2023 8:46 AM CS T Body Mass Index 30.28 04/10/2023 8:46 AM DIGITAL SOLUT[employer] ARCHITECT Plan of Treatment Health Maintenance Due Date Last Done Comments Breast Cancer Screening-Mammogram 1959 Cervical Cancer Screening 1959 Colon Cancer Screening-Colonoscopy 1959 Depression Screening 1959 Fall Risk Assessment 1959 Hepatitis C Screening 1959 Osteoporosis Screening-Bone Density Scan 1959 DTaP/Tdap/Td Vaccine (1 - Tdap) 1970 Hepatitis B Screening 1977 Pneumococcal vaccine 65+ (1 of 2 - PCV) 1978 Zoster Vaccine (1 of 2) 1978 Well Visit 65+ 2024 Influenza Vaccine (#1) 2025 Insurance UHC MEDICARE ADVANTAGE UHC MEDICARE ADVANTAGE IDPA [facility] MEDICARE ADVANTAGE IDPA TRANSPLANT [employer] TRANSPLANT [employer] RISK Care Teams Credit Administration Specialist Relationship Specialty Start Date End Date David Vizcaino DO PCP - General 08/05/16 Calvin Romo MD [address] [place] [id number] Referring Physician Hematology 03/13/23 Gibson Bonilla MD [address] [place] [address] Consulting Physician Medical Oncology 03/13/23
[2025-01-16 19:36] LABS: Cholesterol 128 mg/dL (0-200); HDL Direct 45 mg/dL; Triglycerides 112 mg/dL (<150)
[2025-01-16 20:32] LABS: MALB Creatinine Ratio 267.3 mg/g (0-30)
[2025-01-16 21:11] LABS: Hemoglobin A1C 4.7 % (<5.7)
== END 2025-01-16 13:58 | disposition home or self-care (01) ==
LOC: ANHGOSHLAB 13:58
PROVIDERS: PCP Nurse Practitioner; Visit Provider Nurse Practitioner
DX: E11.9 Type 2 diabetes mellitus without complications (principal)
CPT/HCPCS: 36415; 80061; 82043; 83036

== ENCOUNTER 2025-03-20 02:13 | Day surgery (SDC) | payer MEDICARE, MEDICAID, SELFPAY ==
[2025-03-19 14:48] VITALS: BMI 25.4
[2025-03-20] VITALS (10 sets, daily range): BP systolic 122–162; BP diastolic 49–66; PULSE 65–74; RESP 14–16; TEMP 36.1; O2SAT 93–100
--- OUTSIDE RECORDS SUMMARY | 2025-03-20 02:17 | XMS_ITS | Encounter Summary ---
Author Organization [facility] Address [address] [place] [address] Care Team Providers Care Window Glazier Helper Name Role Phone Unavailable Primary Care Provider Unavailabl e Encounter Details Date Type Department Care Team (Late st Contact Info) Description 06/11/2020 Lab Requisition [facility] Pathology Lab [address] [place] [address] Benjamin Gardner MD [address] [place] [address] Illness, unspecified Social History Tobacco Use Types Packs/Day Years Used Date Smoking Tobacco: Never Assessed Comments Unknown Sex and Gender Information Value Date Recorded Sex Assigned at Not on file Legal Sex Female 12:37 PM MASTER CHEF Gender Identity Not on file Sexual Orientation Not on file documented as of this encounter Plan of Treatment Not on file documented as of this encounter Procedures Procedure Name Priority Date/Time Associated Diagnosis Comments BONE MARROW BIOPSY (STL) Routine 06/09/2020 9:50 AM MASTER CHEF Illness, unspecified documented in this encounter Results * BONE MARROW BIOPSY (STL) (06/09/2020 9:50 AM MASTER CHEF) Case Report Bone Marrow Patholog y Report Case: [id number] Authorizing Provider: Benjamin Gardner MD Collected: 06/09/2020 09:50 AM Ordering Location: [facility] Pathology Lab Received: 06/11/2020 08:07 AM Pathologist: Felecia Crane MD Specimens: A) - Bone Marrow Clot B) - Bone Marrow Core C) - Bone Marrow Aspirate 06/11/2020 3:17 PM MASTER CHEF [facility] PATHOLOG[facility] Final Diagnosis Bone marrow, aspirate, clot section, and core biopsy: - Slightly hypocellular core with maturing trilineage hematopoiesis and plasma cell neoplasm (~30-40% of marrow cellularity). - No amyloid deposition. - Hemodilute aspirate. - See description. Peripheral blood smear: - Normocytic anemia. - See description. 06/11/2020 3:17 PM [facility] PATHOLOGY LAB at [address] MASTER CHEF AP Comment Immunohistochemistry for CD138 was performed on the core to assess staining cells in an architectural context: It highlights ~30-40% plasma cells in the core. 06/11/2020 3:17 PM [facility] Peripheral Smear Description RBC: normocytic anemia WBC: normal in number and morphology, no circulating plasma cells Platelets: normal in number and morphology 06/11/2020 3:17 PM [facility] Bone Marrow Aspirate Differential count (200 cells): not performed due to hemodilution. Specimen quality: hemodiluted. Spicules: none. Trilineage Hematopoiesis: mostly peripheral blood elements Storage iron (by special stain): not evaluable due to lack of spicules Sideroblastic iron (by special stain): not evaluable due to lack of spicules 06/11/2020 3:17 PM [facility] Bone Marrow Core Biopsy and Clot Section Description Specimen quality: adequate, 13 mm. Cellularity: 30-40% Trilineage Hematopoiesis: adequate. Myeloid to Erythroid ratio: normal. Myeloid maturation and localization: normal. Erythroid maturation and localization: normal. Megakaryocyte number: normal. Megakaryocyte distribution: normal. Lymphoid aggregates: absent. Bone trabeculae: thin. Blood vessels: normal. Plasma cells: interstitial increase. Clot section marrow particles: absent. Clot section morphology: clotted blood only. Iron stain on the core: absent in this decalcified specimen. 06/11/2020 3:17 PM [facility] Flow Cytometry Summary Concurrent flow cytometry ([id number]) identified a clonal plasma cell population. 06/11/2020 3:17 PM [facility] Clinical History Rule out plasma cell neoplasm. 06/11/2020 3:17 PM [facility] Disclaimer The performance characteristics of all immunohistochemical and indirect immunofluorescence stains (if any) cited in this report were determined by the Histopathology Laboratory of [facility]. Some of these tests were developed by our own laboratory and have not been cleared or approved by the US Food and Drug Administration. The FDA does not require this test to go through premarket FDA review. These tests are used for clinical purposes. They should not be regarded as investigational or for research. This laboratory is certified under the Clinical Laboratory Improvement Amendments (CLIA) as qualified to perform high complexity clinical laboratory testing. This case has been personally reviewed and interpreted by the attending (teaching) pathologist. 06/11/2020 3:17 PM MASTER CHEF [facility] PATHOLOGY LAB Embedded Images 06/11/2020 3:17 PM MASTER CHEF [facility] PATH[facility] Pathology/Cytology SPECIMEN FROM BONE MARROW OBTAINED BY ASPIRATION / Unknown 06/09/2020 9:50 AM MASTER CHEF 06/11/2020 8:07 AM MASTER CHEF Miscellaneous samples (specimen) BONE MARROW SPECIMEN / Unknown 06/09/2020 9:50 AM MASTER CHEF 06/11/2020 8:07 AM MASTER CHEF Miscellaneous samples (specimen) SPECIMEN FROM BONE MARROW OBTAINED BY ASPIRATION / Unknown 06/09/2020 9:50 AM MASTER CHEF 06/11/2020 8:07 AM MASTER CHEF us Benjamin Gardner MD LAB - PATHOLOGY/CYTOLOGY ORDER [place] Final Result [facility] PATHOLOGY LAB [address] [place] [address], [facility] [phone] documented in this encounter Visit Diagnoses Diagnosis Illness, unspecified documented in this encounter
--- OUTSIDE RECORDS SUMMARY | 2025-03-20 02:17 | XMS_ITS | Encounter Summary ---
Author Organization [facility] Address [address] [place] [address] Care Team Providers Care Associate Professor Of Philosophy Name Role Phone Unavailable Primary Care Provider Unavailabl e Encounter Details Date Type Department Care Team (Late st Contact Info) Description 06/08/2023 Lab Requisition [facility] - Pathology Lab [address] [place] [address] Sandeep Can MD [address] [phone] Multiple myeloma not having achieved remission Social History Tobacco Use Types Packs/Day Years Used Date Smoking Tobacco: Never Assessed Comments Unknown Sex and Gender Information Value Date Recorded Sex Assigned at Not on file Legal Sex Female 12:37 PM HOLTER TECHNICIAN Gender Identity Not on file Sexual Orientation Not on file documented as of this encounter Plan of Treatment Not on file documented as of this encounter Procedures Procedure Name Priority Date/Time Associated Diagnosis Comments FLOW CYTOMETRY BONE MARROW Routine 06/08/2023 9:30 AM HOLTER TECHNICIAN Multiple myeloma not having achieved remission ([facility]) documented in this encounter Results * FLOW CYTOMETRY BONE MARROW (06/08/2023 9:30 AM HOLTER TECHNICIAN) Case Report Flow Cytometry Case: [id number] Authorizing Provider: Sandeep Can MD Collected: 06/08/2023 09:30 AM Ordering Location: [facility] Pathology Lab Received: 06/08/2023 11:51 AM Pathologist: Maritza Krishnamurthy MD Specimen: Bone Marrow 06/08/2023 1:47 PM HOLTER TECHNICIAN [facility] PATHOLOGY LAB Final Diagnosis Bone marrow, flow cytometric immunophenotypic analysis: - No evidence of non-Hodgkin lymphoma, high-grade myeloid neoplasm, or plasma cell dyscrasia - See interpretation 06/08/2023 1:47 PM [facility] PATHOLOGY LAB at [address] HOLTER TECHNICIAN Flow Cytometry Interpretation Viability: 99% B-cells: polytypic, kappa:lambda ratio 1.4:1 Blasts: 0.4% of events Plasma cells: 0.2% of events, polytypic, kappa:lambda ratio 1:1 no immunophenotypic aberrancy detected A bone marrow aspirate smear prepared from the flow cytometry specimen has been reviewed for quality assurance coach purposes. 06/08/2023 1:47 PM [facility] Flow Cytometry Results Differential Result Comment Flow Cell Count /uL 15,000 Total Viability % 99.0 Lymphocytes % 14 Dim CD45 Region % 4 Monocytes % 10 Granulocytes % 72 06/08/2023 1:47 PM [facility] Reason for test Multiple myeloma not having achieved remission ([facility]) 203.00 06/08/2023 1:47 PM [facility] Client Specimen ID # [id number] 06/08/2023 1:47 PM [facility] Number of markers 14 were performed. A-2 Flow CD10 A-3 Flow CD13 A-5 Flow CD20 A-13 Flow CD117 A-14 FLOW CD138 A-1 Flow CD5 A-4 Flow CD19 A-6 Flow CD33 A-7 Flow CD34 A-8 Flow CD45 A-11 Flow CD38 A-12 Flow CD56 A-9 [place]+CD19+ A-10 Lambda+CD19+ 06/08/2023 1:47 PM [facility] Pathologist Location at [facility] 06/08/2023 1:47 PM [facility] PATH[facility] Disclaimer Test performed at [facility], [address] [place] [address], [address]. *The established laboratory minimum viability is 70%. Values below the minimum may result in the failure to find an abnormal population of cells. This test was developed and its performance characteristics determined by the Flow Cytometry Laboratory. It has not been cleared by the [place] Food and Drug Administration (FDA). The FDA has determined that such clearance or approval is not necessary. This test is used for clinical purposes. It should not be regarded as investigational or for research. This laboratory is regulated under the Clinical Laboratory Improvement Amendments of 1998 (CLIA) as a qualified to perform high complexity clinical testing. 06/08/2023 1:47 PM HOLTER TECHNICIAN [facility] PATHOLOGY LAB Embedded Images 1:47 PM HOLTER TECHNICIAN [facility] PATH[facility] Pathology/Cytolo gy BONE MARROW SPECIMEN / Unknown 06/08/2023 9:30 AM HOLTER TECHNICIAN 06/08/2023 11:51 AM HOLTER TECHNICIAN Sandeep Can MD LAB - PATHOLOGY/CYTOLOGY ORDERAB LES Final Result [facility] PATH[facility] [address] [phone] documented in this encounter Visit Diagnoses Diagnosis Multiple myeloma not having achieved remission (HCC) Multiple myeloma, without mention of having achieved remission documented in this encounter
--- OUTSIDE RECORDS SUMMARY | 2025-03-20 02:17 | XMS_ITS | Clinical Summary ---
Author Organization [facility] Address [address] [place] [id number] Care Team Providers Care Oxyacetylene Welder Name Role Phone David Vizcaino DO Primary Care Provider [phone] Calvin Romo MD Unavailable [phone] Gibson Bonilla MD Unavailable Allergies Active Allergy Reactions Criticality Noted Date Comments Kana Inhibitors Hives High 08/13/2023 Povidone-Iodine Hives Medium 11/18/2016 Chlorhexidine Itching,Rash Medium 09/29/2016 For preop shower scrub Codeine Chest tightness Medium Pneumococcal 23-China Ps Vaccine Hives Medium 09/09/2022 Tiotropium Unknown High 08/13/2023 Medications aspirin 81 mg tablet take 1 [...] MOUTH TWICE DAILY MONDAY, MONDAY, MONDAY Active Wegovy 1 mg/0.5 mL auto-injector ADMINISTER 1 MG UNDER THE SKIN WEEKLY Active Hospital, Clinic, or Other Facility Administered Medication Ordered Dose Route Frequency Start Date End Date Status aminophylline 250 mg/10 mL injection 100 mgIndications:Coronary arteriosclerosis in [place] artery 100 mg IV Once 03/04/2025 03/04/2025 Ended Active Problems Problem Noted Date Diagnosed Date [...] stable, remains a nonsmoker Coronary arteriosclerosis in [place] artery 02/25 Overview (08/10/2016): CRNRY ATHRSCL NATVE VSSL Assessment & Plan (11/18/2016 7:32 PM CDT): Two thousand eleven: Non STEMI, WILFRED in the RCA and CX Several evaluations for atypical chest pain negative Nitrate responsive chest pain in September 2016, CABG for left main September 2016, [facility] Feeling very well now with no angina [...] infarction 08/09/2010 Overview (08/11/2016): SUBENDO INFARCT, SUBSEQ Encounters Date Type Department Care Team Description 03/10/2025 Telephone [facility] Medical [facility] Cardiology [address] [facility] [address] [place] [phone] Eva Crespo NP 03/04/2025 9:15 AM CDT Ancillary Procedure [facility] Cardiology [address] [facility] [address] [place] [phone] Coronary arteriosclerosis in [place] artery 01/29/2025 1:00 PM CDT Office Visit [facility] Cardiology [address] [facility] [address] [place] [phone] Eva Crespo NP Coronary arteriosclerosis in [place] artery (Primary Dx); Primary hypertension from Last 3 Months Surgical History Surgery Date Site/Laterality Comments CORONARY ANGIOPLASTY CORONARY ARTERY BYPASS GRAFT CHOLECYSTECTOMY Medical History Medical History Date Comments Adiposity Obesity Hx Other Medical Diabetes Type I I Chronic obstructive pulmonary disease COPD Hx Other Medical 2010 CT brain - hypo densities of white matter Hypertension Acid reflux Cholelithiasis Myocardial infarction acute Diabetes mellitus Coronary artery disease Hyperlipidemia Multiple myeloma Family [...] on file Legal Sex Female 1:45 AM CREDENTIALING MANAGER Gender Identity Not on file Sexual Orientation Not on file Last Filed Vital Signs Vital Sign Reading Time Taken Comments Blood Pressure 118/80 01/29/2025 12:59 PM CDT Pulse 94 01/29/2025 12:59 PM CDT Temperature 36.5 C (97.7 F) 04/10/2023 8:46 AM CREDENTIALING MANAGER Respiratory Rate 18 04/10/2023 8:46 AM CREDENTIALING MANAGER Oxygen Saturation 99% 01/29/2025 12:59 PM CDT Inhaled Oxygen Concentration - - Weight 66 kg (145 lb 9.6 oz) 01/29/2025 12:59 PM CDT Height 157.5 cm (5' 2) 01/29/2025 12:59 PM CDT Body Mass Index 26.63 01/29/2025 12:59 PM CDT Plan of Treatment Health Maintenance Due Date Last Done Comments Breast Cancer Screening-Mammogram 1959 Colon Cancer Screening-Colonoscopy 1960 Depression Screening 1959 Fall Risk Assessment 1960 Hepatitis C Screening 1960 Osteoporosis Screening-Bone Density Scan 1959 DTaP/Tdap/Td Vaccine (1 - Tdap) 1970 Hepatitis B Screening 1977 Pneumococcal vaccine 65+ (1 of 2 - PCV) 1978 Zoster Vaccine (1 of 2) 1978 Well Visit 65+ 2024 Influenza Vaccine (#1) 2025 Procedures Procedure Name Priority Date/Time Associated Diagnosis Comments NM MPI SPECT (REST AND/OR STRESS) MULTIPLE STUDIES Schedule Routine, Read Routine (OP Routine) 03/04/2025 10:56 AM CDT Coronary arteriosclerosis in [place] artery POCT LIPID PANEL Routine 01/29/2025 1:02 PM CDT Coronary arteriosclerosis in [place] artery from Last 3 Months Results * NM MPI SPECT (Rest and/or Stress) Multiple Studies (03/04/2025 10:56 AM CDT) Anatomical Region Laterality Modality Body N/A Nuclear Medicine 03/04/2025 7:22 AM CDT Narrative 03/04/2025 5:54 PM CDT [facility] Medical Group Cardiology [address], [place] [address] [address] [facility] [address], [place] [address], [place] [address] P:[phone] P:[phone] MPI Imaging Report Patient Name: EVA SANFORD Shelley : 1960 Study Date: 03/04/2025 7:22:51 AM Sex: F Tech: [facility] Location: [facility] Provider: EVA CRESPO Height(Cm): 157.5 BSA: Weight(Kg): 66 BMI: 26.61 Order Provider: EVA CRESPO PHYSICIAN: Primary Care Physician: Dr. Vizcaino. [facility] Physician: Nestor Bledsoe M.D.,F.A.C.C. Stress Supervision: Myles Daniels M.D. Stress Interpreting Physician: Myles Daniels M.D. PROCEDURES: Pharmacologic SPECT Report: Myocardial perfusion imaging with Tc99M Sestamibi SPECT at rest and stress post regadenoson (Lexiscan) infusion. INDICATIONS: Hypertension, Family Hx CAD, High Cholesterol, Former Smoker, ALBERTS, and I25.10 Atherosclerotic heart disease of [place] coronary artery without angina pectoris. FINDINGS: Procedural Findings: One day rest/stress was used. Tc99m Sestamibi injected IV at rest was 10.4 millicuries 32.4 millicuries of Tc99M Sestamibi injected IV during Lexiscan stress Lexiscan 0.4mg administered IV over 10 seconds. Pharmacologic stress related symptoms and/or side effects during infusion include chest pain/discomfort/tightness 4/10 and nausea. Symptoms were resolved with 100 mg of aminophylline IVP. Baseline heart rate was 72 BPM Maximum Heart Rate Achieved was: 124 BPM Baseline blood pressure was 138/66 mmHg Post Stress Blood Pressure was 136/68 mmHg Termination: Protocol complete. Resting ECG: Normal sinus rhythm. ST-T abnormalities c/w inferolateral ischemia. PVC. Post EC mm or more downsloping inf/lat ST depression. Arrhythmia: Occasional PVCs. Perfusion Findings: Abnormal perfusion imaging - see below. Technical quality of study is excellent. Prone imaging was not performed. Left ventricle cavity size at rest is normal. Left ventricle cavity size with stress is unchanged. A TID of 0.98 was automatically calculated. defect 1: Size is medium. Severity is moderate. Location of defect is in the basal anterior segment, basal anteroseptal segment, mid anterior segment and mid anteroseptal segment. Reversibility is full. Type of defect is ischemia. LV Function: Left ventricular ejection fraction is 37 %. There is moderate LV dysfunction. CONCLUSIONS: 1 mm or more downsloping inf/lat ST depression with Lexiscan c/w ischemia. Left ventricular ejection fraction is 37 %. There is moderate LV dysfunction. Size is medium. Severity is moderate. Location of defect is in the basal anterior segment, basal anteroseptal segment, mid anterior segment and mid anteroseptal segment. Reversibility is full. Type of defect is ischemia. Myocardial perfusion imaging is abnormal. 4/10 chest tightness with stress which did resolve with 100 mg of aminophylline IV. Electronically Signed By: Chris Daneils MD 03/04/2025 4:33:19 PM CDT Electronically Signed By: Chris Daniels MD 03/04/2025 4:33:19 PM CDT Procedure Note Chris Daniels MD - 03/04/2025 [facility] Medical Group Cardiology [address] [facility] [address], [place] [address] [address] [facility] [address], [address], [place] [address] P:[phone] P:[phone] MPI Imaging Report Patient Name: EVA SANFORD A : 1960 Study Date: 03/04/2025 7:22:51 AM Sex: F Tech: [facility] Location: [facility] Provider: EVA CRESPO Height(Cm): 157.5 BSA: Weight(Kg): 66 BMI: 26.61 Order Provider: CHERIEEVA Gary PHYSICIAN: Primary Care Physician: Dr. Vizcaino. [facility] Physician: Nestor Black M.D.,F.A.C.C. Stress Supervision: Myles Daniels M.D. Stress InterpretingPhysician: Myles Daniels M.D. PROCEDURES: Pharmacologic SPECT Report: Myocardial perfusion imaging with Tc99M Sestamibi SPECT at rest and stresspost regadenoson (Lexiscan) infusion. INDICATIONS: Hypertension, Family Hx CAD, High Cholesterol, Former Smoker, ALBERTS, andI25.10 Atherosclerotic heart disease of [place] coronary artery without anginapectoris. FINDINGS: Procedural Findings: One day rest/stress was used. Tc99m Sestamibi injected IV at rest was 10.4 millicuries 32.4 millicuries of Tc99M Sestamibi injected IV during Lexiscan stress Lexiscan 0.4mg administered IV over 10 seconds. Pharmacologic stress related symptoms and/or side effects duringinfusion include chest pain/discomfort/tightness 4/10 and nausea. Symptoms were resolved with 100 mg of aminophylline IVP. Baseline heart rate was 72 BPM Maximum Heart Rate Achieved was: 124 BPM Baseline blood pressure was 138/66 mmHg Post Stress Blood Pressure was 136/68 mmHg Termination: Protocol complete. Resting ECG: Normal sinus rhythm. ST-T abnormalities c/w inferolateral ischemia. PVC. Post EC mm or more downsloping inf/lat ST depression. Arrhythmia: Occasional PVCs. Perfusion Findings: Abnormal perfusion imaging - see below. Technical quality of study isexcellent. Prone imaging was not performed. Left ventricle cavity size at rest is normal.Left ventricle cavity size with stress is unchanged. A TID of 0.98 was automaticallycalculated. defect 1: Size is medium. Severity is moderate. Location of defect is in the basalanterior segment, basal anteroseptal segment, mid anterior segment and midanteroseptal segment. Reversibility is full. Type of defect is ischemia. LV Function: Left ventricular ejection fraction is 37 %. There is moderate LVdysfunction. CONCLUSIONS: 1 mm or more downsloping inf/lat ST depression with Lexiscan c/wischemia. Left ventricular ejection fraction is 37 %. There is moderate LVdysfunction. Size is medium. Severity is moderate. Location of defect is in the basalanterior segment, basal anteroseptal segment, mid anterior segment and midanteroseptal segment. Reversibility is full. Type of defect is ischemia. Myocardial perfusion imaging is abnormal. 4/10 chest tightness with stress which did resolve with 100 mg ofaminophylline IV. Electronically Signed By: Chris Daniels MD 03/04/2025 4:33:19 PM CDT Electronically Signed By: Chris Daniels MD 03/04/2025 4:33:19 PM CDT Eva Crespo NP IMG NM PROCEDURES Final Resu lt * (ABNORMAL) POCT lipid panel (01/29/2025 1:02 PM CDT) Cholesterol, POC 159 <200 MG/DL HDL, POC 45 >=40 mg/dL Triglycerides, POC 161(A) <=149 mg/dL LDL Cholesterol POC 81 <=129 mg/dL Chol/HDL Ratio, POC 1.8 NONE Non-HDL Cholesterol, POC 114 NONE mg/dL Cholesterol Total, POC 159 30 - 199 mg/dL Capillary blood 01/29/2025 1 :02 PM CDT Eva Crespo NP POINT OF CARE TEST ORDERABLE S Final Result from Last 3 Months Insurance UHC MEDICARE ADVANTAGE [facility] Address: [facility] [address] [place] [address] UHC MEDICARE ADVANTAGE [employer] [facility] MEDICARE ADVANTAGE [facility] Address: [address] [address] [place] [address] [employer] Care Teams Oxyacetylene Welder Relationship Specialty Start Date End Date David Vizcaino DO PCP - General 08/05/16 Calvin Romo MD [address] [place] [address] Referring Physician Hematology 03/13/23 Gibson Bonilla MD [address] [place] [address] Consulting Physician Medical Oncology 03/13/23
--- OUTSIDE RECORDS SUMMARY | 2025-03-20 02:17 | XMS_ITS | Clinical Summary ---
Author Organization [facility] Address [address] [place] [address] Phone Care Team Providers Care Campus Recruiter Name Role Phone David Vizcaino DO Primary Care Provider Allergies Active Allergy Reactions Criticality Noted Date Comments Chlorhexidine Gluconate Rash,Itching Medium 09/29/2016 For preop shower scrub Codeine Shortness of Breath/Wheezing High 09/27/2016 Other reaction(s): Chest tightness Povidone-Iodine Hives High 11/18/2016 Medications omeprazole (PriLOSEC) 40 mg Capsule, Delayed Release(E.C.) [...] TABLET BY MOUTH ONCE DAILY. 0 Active OneTouch Delica Plus Lancet 33 gauge USE TO CHECK BLOOD SUGAR TID 0 Active TRUEplus Pen Needle 31 gauge x 3/16 Needle USE DIRECTED 0 Active venlafaxine (EFFEXOR) 75 mg tablet Take 75 mg by mouth daily. 0 Active benzonatate (TESSALON) 100 mg capsule TAKE 1 CAPSULE BY MOUTH THREE TIMES DAILY NEEDED FOR COUGH 2 Active Symbicort 80-4.5 mcg/actuation HFA Aerosol [...] Encounters Date Type Department Care Team Description 03/17/2025 Orders Only [facility] Oncology and Hematology [facility] Evelio Guerrero [address] Calvin Romo MD Anemia of chronic renal failure, stage 3b (CMS/HCC) 03/03/2025 Orders Only [facility] Oncology and Hematology [facility] [address]Evelio Gu[address]ro [address] Calvin Romo MD Anemia of chronic renal failure, stage 3b (CMS/HCC) 02/19/2025 1:00 PM CDT Office Visit [facility] Oncology and Hematology [facility] Kit Guerrero [address] [place] [phone] Calvin Romo MD Chronic anemia (Primary Dx); Multiple myeloma, remission status unspecified (CMS/HCC) 02/17/2025 Orders Only [facility] Oncology and Hematology Willie Kit Guerrero [address] [place] [phone] Calvin Romo MD Anemia of chronic renal failure, stage 3b (CMS/HCC) 02/03/2025 Orders Only [facility] Oncology and Hematology Willie Kit Guerrero [address] Calvin Romo MD Anemia of chronic renal failure, stage 3b (CMS/HCC) 01/21/2025 External Device Data STL ABSTRACTION Provider, Abstract 01/20/2025 Orders Only [facility] Oncology and Hematology - [place] [address] Christy Guerrero [address] Calvin Romo MD Anemia of chronic renal failure, stage 3b (CMS/HCC) 01/13/2025 Orders Only [facility] Oncology and Hematology - [place] [address] Christy [address] Calvin Romo MD 01/07/2025 Abstract [facility] Oncology and Hematology - [place] [address] Christy Guerrero [address] Calvin Romo MD 01/06/2025 Orders Only [facility] Oncology and Hematology - [place] [address] Christy Gu[address]ro [address] [place] [phone] Calvin Romo MD Anemia of chronic renal failure, stage 3b (CMS/HCC) 12/30/2024 Orders Only [facility] Oncology and Hematology - [place] 222Evelio Guerrero [address] Calvin Romo MD Anemia of chronic renal failure, stage 3b (CMS/HCC) 12/23/2024 Orders Only [facility] Oncology and Hematology - [place] 222Evelio Guerrero [address] [place] [phone] Calvin Romo MD Anemia of chronic renal [...] Sign Reading Time Taken Comments Blood Pressure 116/66 02/19/2025 1:06 PM CDT Pulse 84 02/19/2025 1:06 PM CDT Temperature 36.1 C (96.9 F) 02/19/2025 1:06 PM CDT Respiratory Rate 15 02/19/2025 1:06 PM CDT Oxygen Saturation 94% 02/19/2025 1:06 PM CDT Inhaled Oxygen Concentration - - Weight 65.3 kg (144 lb) 02/19/2025 1:06 PM CDT Height 160 cm (5' 3) 02/04/2022 9:27 AM CDT Body Mass Index 25.51 02/04/2022 9:27 AM CDT Plan of Treatment Upcoming Encounters Date Type Department Care Team (Late st Contact Info) Description 05/20/2025 1:00 PM PHOSPHATIC FERTILIZER SUPERVISOR Office Visit [facility] Oncology and Hematology - [place] [address] [facility] [address] [place] [address] Calvin Romo MD [address] [facility] [address] [place] [address] Health Maintenance Due Date Last [...] Flex Sig/CT Colonography Q 5 years 2004 RSV VACCINE (60+ or ) (1 - Risk 50-74 years 1-dose series) 2009 DIABETES HBA1C Q 6 MONTHS 03/30/2017 09/27/2016 OSTEOPOROSIS SCREENING 2024 INFLUENZA VACCINE (#1) 2024 Procedures Procedure Name Priority Date/Time Associated Diagnosis Comments CBC WITH AUTODIFFERENTIAL Routine 01/10/2025 12:44 PM CDT HEMOGLOBIN A1C Routine 09/27/2016 8:42 PM CDT from Last 3 Months or Most Recently Relevant to Health Maintenance Results * CBC WITH AUTODIFFERENTIAL (01/10/2025 12:44 PM CDT) Blood Calvin Romo MD HEMATOLOGY ORDERABLES Final Res ult * (ABNORMAL) HEMOGLOBIN A1C (09/27/2016 8:42 PM CDT) HEMOGLOBIN A1C 7.4(H) 4.0 - 6.0 % 09/27/2016 11:06 PM CDT [facility] Comment:Note: Effective as o f 05/29/2015 a new methodology, Turbidimetric inhibition immunoassay (TINIA),has been implemented. EST. AVG GLUCOSE, A1C 166 mg/dL 09/27/2016 11:06 PM CDT [facility] Blood Venipuncture / Unknown 09/27/2016 8:42 PM CDT 09/27/2016 8:42 PM CDT Silvina BOSE CHEMISTRY ORDERABLES Mackenzie l Result [facility] CLIA# [id number] [address] [place] [address] from Last 3 Months or Most Recently Relevant to Health Maintenance Insurance [place] [employer] RX Member Subscriber Plan / Payer (Ef fective 2022-Present) Name:Eva Li Relation to Subscriber:Self Name:Eva Li Payer ID:Not on file Group ID:[id number] Type:RX Medicare Part D Address: [address] Advance Directives For more information, please contact: [phone] * Full Code (Latest Code Status on File) Date Activated Date Inactivated Comments 10/05/2016 12:48 PM 10/10/2016 1:33 PM * Full Code Date Activated Date Inactivated Comments 10/05/2016 5:56 AM 10/05/2016 12:48 PM Care Teams Campus Recruiter Relationship Specialty Start Date End Date David Vizcaino DO PCP - General Internal Medicine 09/28/16
--- OUTSIDE RECORDS SUMMARY | 2025-03-20 02:17 | XMS_ITS | Clinical Summary ---
Author Organization [facility] Address [address] [facility] [place] [address] Care Team Providers Care Manager Rental Name Role Phone Unavailable Primary Care Provider Unavailabl e Source Comments [facility],non-owned Affiliates and Associated Physician Practices is amultiple site organization consisting of ambulatory clinics and hospital sitesin [place], [place], [place] and [place]. This disclosure is being madepursuant to the Care Everywhere program and may not contain all information available regarding this patient. Last updated 18.[facility] [employer] Social History Tobacco Use Types Packs/Day Years Used Date Smoking Tobacco: Never Assessed Comments Unknown Sex and Gender Information Value Date Recorded Sex Assigned at Not on file Legal Sex Female 12:37 PM DE ALCOHOLIZER Gender Identity Not on file Sexual Orientation Not on file Plan of Treatment Health Maintenance Due Date Last Done Comments BONE DENSITY TESTING 1959 COLOGUARD (AGES 45-75) - COL ON CA SCREENING 1959 COLON MONITORING 1959 COLONOSCOPY - COLON CA SCREENING 1959 CT COLONOGRAPHY - COLON CA SCREENING 1959 Colorectal Cancer Screening 1959 FIT - COLON CA SCREENING 1959 FLEX SIG - COLON CA SCREENING 1959 LIPID TESTING 1959 MAMMOGRAM 1959 HIV SCREENING 1974 HEPATITIS C SCREENING 03/10/1977 DTAP/TDAP/TD VACCINES (1 - Tdap) 1978 PAP SMEAR 1980 PNEUMOCOCCAL VACCINE 50+ (1 of 1 - PCV) 2009 ZOSTER VACCINE (1 of 2) 2009 DEPRESSION SCREENING 05/08/2024 MEDICARE AWV CALENDAR YEAR 2024 COVID-19 VACCINE (1 - 2023-2 5 season) 2025 INFLUENZA VACCINE (#1) 2025 Respiratory Syncytial Virus (RSV) Vaccine Pt: or over 60 yrs (1 - 1-dose 75+ series) 2034 HEPATITIS B VACCINE Aged Out No longe r eligible based on patient's age to complete this topic HIB VACCINE Aged Out No longer eligi ble based on patient's age to complete this topic HPV VACCINE Aged Out No longer eligi ble based on patient's age to complete this topic MENINGOCOCCAL (Group B) VACC INE SHARED DECISION-MAKING Aged Out No longer eligibl e based on patient's age to complete this topic MENINGOCOCCAL GROUPS A/C/Y/W VACCINE Aged Out No longer eligible b ased on patient's age to complete this topic Insurance MEDICAID - OUT OF STATE [address] MEDICARE ADV [facility] MANAGED MEDICARE ADV [place] [employer] MANA[place]ICARE [place] [facility] MEDICARE [place] [employer] MANAGED MEDICARE ADV
--- OUTSIDE RECORDS SUMMARY | 2025-03-20 02:17 | XMS_ITS | Encounter Summary ---
Author Organization [facility] Address [address] [facility] [place] [address] Care Team Providers Care Continuous Process Coffee Roaster Name Role Phone Unavailable Primary Care Provider Unavailabl e Encounter Details Date Type Department Care Team (Late st Contact Info) Description 06/09/2023 Lab Requisition [facility] - Pathology Lab [address] [place] [phone] Sandeep Can MD [address] [address] Illness, unspecified Social History Tobacco Use Types Packs/Day Years Used Date Smoking Tobacco: Never Assessed Comments Unknown Sex and Gender Information Value Date Recorded Sex Assigned at Not on file Legal Sex Female 12:37 PM EIGHT ARM OPERATOR Gender Identity Not on file Sexual Orientation Not on file documented as of this encounter Plan of Treatment Not on file documented as of this encounter Procedures Procedure Name Priority Date/Time Associated Diagnosis Comments BONE MARROW BIOPSY (STL) Routine 06/09/2023 3:13 PM EIGHT ARM OPERATOR Illness, unspecified documented in this encounter Results * BONE MARROW BIOPSY (STL) (06/09/2023 3:13 PM EIGHT ARM OPERATOR) Case Report Bone Marrow Patholog y Report Case: [id number] Authorizing Provider: Sandeep Can MD Collected: 06/09/2023 03:13 PM Ordering Location: [facility] Care Pathology Lab Received: 06/09/2023 03:25 PM Pathologist: Maritza Krishnamurthy MD Specimens: A) - Bone Marrow Clot B) - Bone Marrow Core 06/12/2023 2:16 PM EIGHT ARM OPERATOR U PATHOLOGY LAB Final Diagnosis Bone marrow, aspirate, clot section, and core biopsy: - Minimally hypocellular marrow with maturing trilineage hematopoiesis - No evidence of lymphoma, high-grade myeloid neoplasm, or plasma cell dyscrasia - See description Peripheral blood smear: - Macrocytic anemia - See description 06/12/2023 2:16 PM [facility] PATHOLOGY LAB at 1416 EIGHT ARM OPERATOR AP Comment Overall, the bone marrow specimen is minimally hypocellular for age with maturing trilineage hematopoiesis and no morphologic evidence of lymphoma, a high-grade myeloid neoplasm, or plasma cell dyscrasia. Correlation with clinical findings and relevant cytogenetic/molecular testing is required. 06/12/2023 2:16 PM [facility] PATHOLOGY LAB Peripheral Smear Description CBC Data: WBC - 4.9, Hgb - 9.2, MCV - 107.3, MCHC - 31.2, and Platelets - 191. Manual Differential Count (100 cells): 42% neutrophils, 41% lymphocytes, 12% monocytes, 4% eosinophils, and 1% basophils. 2 nRBCs / 100 WBCs. Leukocyte number: normal. Granulocyte morphology: normal. Lymphocyte morphology: normal. Erythrocyte number: decreased. Erythrocyte morphology: macrocytic. Anisopoikilocytosis: mild. Polychromasia: mild. Platelet number: normal. Platelet morphology: normal. 06/12/2023 2:16 PM [facility] PATHOLOGY LAB Bone Marrow Aspirate The aspirate smears contain a few small spicules that show very limited cellularity. Scanning shows paucicellular preparations, but maturing trilineage hematopoiesis is seen. Storage iron (by special stain): decreased, but limited cellularity. Control is appropriately reactive. 06/12/2023 2:16 PM [facility] PATHOLOGY LAB Bone Marrow Core Biopsy and Clot Section Description Specimen quality: The decalcified bone marrow core biopsy is adequate for evaluation. Cellularity: ~20-30%, minimally hypocellular. Trilineage Hematopoiesis: present. Myeloid to Erythroid ratio: mildly decreased. Myeloid maturation and localization: normal. Erythroid maturation and localization: normal. Megakaryocyte number: normal. Megakaryocyte distribution: small, loose clusters. Lymphoid aggregates: absent. Plasma cells: normal. Clot section marrow particles: few. Clot section morphology: similar to core biopsy. Clot section iron (by special stain): decreased, but no particles present for evaluation on stained level. To further evaluate the core biopsy for an atypical lymphoplasmacytic infiltrate, immunohistochemistry is performed on the core biopsy with appropriately reactive controls. CD138 shows that plasma cells comprise relatively rare cells in the marrow (less than 3% of the cellularity). Callender and lambda stains show a mixed pattern of expression, with no definitive monoclonality. CD3 shows a normal number and distribution of interstitial T-cells. CD20 shows rare, single B-cells. 06/12/2023 2:16 PM [facility] PATHOLOG[facility] Flow Cytometry Summary Concurrent flow cytometry ([id number]) shows no evidence of non-Hodgkin lymphoma, high-grade myeloid neoplasm, or plasma cell dyscrasia. 06/12/2023 2:16 PM [facility] PATHOLOGY LAB Clinical History 63 year old woman with a history of myeloma. 06/12/2023 2:16 PM [facility] PATHOLOGY LAB Materials Received Received are 21 slides and 3 blocks labeled [id number] along with a copy of the outside pathology report. [place] [address] . All original materials are returned to the referring institution, along with a copy of our final report. 06/12/2023 2:16 PM [facility] PATHOLOGY LAB Pathologist Location at [facility] 06/12/2023 2:16 PM [facility] PATHOLOGY LAB Disclaimer The performance characteristics of all immunohistochemical and indirect immunofluorescence stains (if any) cited in this report were determined by the Histopathology Laboratory of [facility]. Some of these tests were developed by [...] and interpreted by the attending (teaching) pathologist. 06/12/2023 2:16 PM [facility] PATHOLOGY LAB Embedded Images 06/12/2023 2:16 PM [facility] PATHOLOGY LAB Pathology/Cytology BONE MARROW SPECIMEN / Unknown 06/09/2023 3:13 PM EIGHT ARM OPERATOR 06/09/2023 3:25 PM EIGHT ARM OPERATOR Miscellaneous samples (specimen) BONE MARROW SPECIMEN / Unknown 06/09/2023 3:13 PM EIGHT ARM OPERATOR 06/09/2023 3:25 PM EIGHT ARM OPERATOR us Sandeep Can MD LAB - PATHOLOGY/CYTOLOGY ORDERAB LES Final Result [facility] PATHOLOGY LAB [address] [facility] [place] [address], [facility] [phone] documented in this encounter Visit Diagnoses Diagnosis Illness, unspecified documented in this encounter
--- OUTSIDE RECORDS SUMMARY | 2025-03-20 02:17 | XMS_ITS | Encounter Summary ---
Author Organization [facility] Address [address] [facility] [place] [address] Care Team Providers Care Soil Surveyor Name Role Phone Unavailable Primary Care Provider Unavailabl e Encounter Details Date Type Department Care Team (Late st Contact Info) Description 11/03/2022 Lab Requisition [facility] - Pathology Lab [address] [place] [phone] Shayna Lemus MD [facility] [address] [address] Multiple myeloma not having achieved remission Social History Tobacco Use Types Packs/Day Years Used Date Smoking Tobacco: Never Assessed Comments Unknown Sex and Gender Information Value Date Recorded Sex Assigned at Not on file Legal Sex Female 12:37 PM VISUAL JOURNALIST Gender Identity Not on file Sexual Orientation Not on file documented as of this encounter Plan of Treatment Not on file documented as of this encounter Procedures Procedure Name Priority Date/Time Associated Diagnosis Comments FLOW CYTOMETRY BONE MARROW Routine 11/03/2022 9:30 AM CDT Multiple myeloma not having achieved remission ([facility]) documented in this encounter Results * FLOW CYTOMETRY BONE MARROW (11/03/2022 9:30 AM CDT) Case Report Flow Cytometry Case: [id number] Authorizing Provider: Shayna Lemus MD Collected: 11/03/2022 09:30 AM Ordering Location: [facility] Care Pathology Lab Received: 11/03/2022 03:46 PM Pathologist: Goyo Churchill MD Specimen: Bone Marrow 11/04/2022 8:42 AM CDT U PATHOLOGY LAB Final Diagnosis Bone marrow, flow cytometric immunophenotypic analysis: - plasma cells (7.8% all events) co-express CD138, brCD38, CD19 are monotypic cyLambda light chain. - See interpretation. Correlation with clinical findings, imaging, SPEP and serum light chain ratio, the concurrent bone marrow core biopsy, and relevant cytogenetic/molecu lar studies is required. 11/04/2022 8:42 AM [facility] PATHOLOGY LAB at 0842 CDT Flow Cytometry Interpretation The bone marrow specimen has a viability of 84%. by side scatter/CD138, 20% of events are within the plasma cell gate. 7.8% of all events co-express CD138 and bright CD38, CD19+, with a cykappa/cylambda ratio of 1:17. There is no aberrant co-expression of CD10, CD20, CD56, and CD117. Within the lymphocyte gate, there is no monoclonal B-cell population identified (kappa: lambda ratio = 1.5:1). There is no aberrant co-expression of CD5 or CD10 on B-cells. There is no expanded T-cell population seen. By CD34, less than 1.8% of all flow events analyzed are blasts. A bone marrow aspirate smear prepared from the flow cytometry specimen is reviewed for corporate quality engineer purposes. 11/04/2022 8:42 AM [facility] PATHOLOGY LAB Flow Cytometry Results Differential Result Comment Flow Cell Count /uL 21,900 Total Viability % 84.0 Lymphocytes % 39 Dim CD45 Region % 15 Monocytes % 17 Granulocytes % 29 11/04/2022 8:42 AM [facility] PATHOLOGY LAB Reason for test Multiple myeloma not having achieved remission ([facility]) 203.00 11/04/2022 8:42 AM [facility] PATHOLOGY LAB Client Specimen ID # [id number] 11/04/2022 8:42 AM [facility] PATHOLOGY LAB Number of markers 14 were performed. A-2 Flow CD13 A-8 Flow CD10 A-10 Flow CD20 A-13 Flow CD117 A-14 FLOW CD138 A-1 Flow CD5 A-3 Flow CD33 A-4 Flow CD34 A-5 Flow CD45 A-9 Flow CD19 A-11 Flow CD38 A-12 Flow CD56 A-6 Hyden+CD19+ A-7 Lambda+CD19+ 11/04/2022 8:42 AM [facility] PATHOLOGY LAB Pathologist Location at [facility] 11/04/2022 8:42 AM T [facility] PATHOLOGY LAB Disclaimer Test performed at [facility], [address] [place], [place], [address]. *The established laboratory minimum viability is 70%. [...] qualified to perform high complexity clinical testing. 11/04/2022 8:42 AM CDT [facility] PATHOLOGY LAB Embedded Images 8:42 AM T [facility] PATHOLOGY LAB Pathology/Cytolo gy BONE MARROW SPECIMEN / Unknown 11/03/2022 9:30 AM CDT 11/03/2022 3:46 PM CDT Shayna Lemus MD LAB - PATHOLOGY/CYTOLOGY ORDERAB LES Final Result [facility] PATHOLOGY LAB [address] [facility] [place] [address], [facility] [phone] documented in this encounter Visit Diagnoses Diagnosis Multiple myeloma not having achieved remission (HCC) Multiple myeloma, without mention of having achieved remission documented in this encounter
--- OUTSIDE RECORDS SUMMARY | 2025-03-20 02:17 | XMS_ITS | Encounter Summary ---
Author Organization [facility] Address [address] [place] [address] Care Team Providers Care Timber Packer Name Role Phone David Vizcaino DO Primary Care Provider Encounter Details Date Type Department Care Team (Late Contact Info) Description 03/17/2025 Orders Only [facility] Oncology and Hematology - [place] [address]y [address]ro [address] [place] [address] Calvin Romo MD [facility] [employer] [address] [place] [phone] Anemia of chronic renal failure, stage 3b (CMS/HCC) Social History Tobacco Use Types Packs/Day Years [...] st Contact Info) Description 05/20/2025 1:00 PM SWING TENDER Office Visit [facility] Oncology and Hematology - [place] [address] [place] [address] Calvin Romo MD [address] [employer] [address] [place] [phone] documented as of this encounter Visit Diagnoses Diagnosis Anemia of chronic renal failure, stage 3b (CMS/HCC) documented in this encounter Care Teams Timber Packer Relationship Specialty Start Date End Date David Vizcaino DO PCP - General Internal Medicine 09/28/16 documented as of this encounter
--- OUTSIDE RECORDS SUMMARY | 2025-03-20 02:17 | XMS_ITS | Encounter Summary ---
Author Organization [facility] Address [address] [facility] [place] [address] Care Team Providers Care Books Binder Name Role Phone Unavailable Primary Care Provider Unavailabl e Encounter Details Date Type Department Care Team (Late st Contact Info) Description 06/09/2020 Lab Requisition [facility] Care Pathology Lab [address] [place] [address] Benjamin Gardner MD [address] [place] [address] Disorder of white blood cells, unspecified Social History Tobacco Use Types Packs/Day Years Used Date Smoking Tobacco: Never Assessed Comments Unknown Sex and Gender Information Value Date Recorded Sex Assigned at Not on file Legal Sex Female 12:37 PM CHIEF CLOTH FINISHING RANGE OPERATOR Gender Identity Not on file Sexual Orientation Not on file documented as of this encounter Plan of Treatment Not on file documented as of this encounter Procedures Procedure Name Priority Date/Time Associated Diagnosis Comments FLOW CYTOMETRY BONE MARROW Routine 06/09/2020 9:50 AM CHIEF CLOTH FINISHING RANGE OPERATOR Disorder of white blood cells, unspecified documented in this encounter Results * FLOW CYTOMETRY BONE MARROW (06/09/2020 9:50 AM CHIEF CLOTH FINISHING RANGE OPERATOR) Case Report Flow Cytometry Case: [id number] Authorizing Provider: Benjamin Gardner MD Collected: 06/09/2020 09:50 AM Ordering Location: [facility] Care Pathology Lab Received: 06/09/2020 01:06 PM Pathologist: Felecia Crane MD Specimen: Bone Marrow 06/09/2020 4:59 PM CHIEF CLOTH FINISHING RANGE OPERATOR [facility] Final Diagnosis Bone marrow, flow cytometry: - Clonal (cy) lambda light chain restricted plasma cell population detected (~6% of overall events) 06/09/2020 4:59 PM CHIEF CLOTH FINISHING RANGE OPERATOR [facility] at 1659 CHIEF CLOTH FINISHING RANGE OPERATOR Flow Cytometry Interpretation The bone marrow specimen has a viability of 99%. The lymphocyte, dim CD45, monocyte, and granulocyte mckenna are normal in relative proportion. Within the lymphocyte gate, there is no monotypic B-cell population identified (kappa: lambda ratio = 1:1). There is no expanded T-cell population seen. By CD34, 2.2% of all events analyzed are blasts. Plasma cells are expanded expressing CD138, CD38, CD19 (partial), CD56 (aberrant), (cy) lambda), and CD117 (aberrant), comprising ~6% of overall events). A bone marrow aspirate smear prepared from the flow cytometry specimen is reviewed for quality assurance clerk purposes. 06/09/2020 4:59 PM [facility] Flow Cytometry Results Differential Result Comment Flow Cell Count /uL 23,400 Total Viability % 99.0 Lymphocytes % 38 Dim CD45 Region % 22 Monocytes % 13 Granulocytes % 26 06/09/2020 4:59 PM [facility] Reason for test Disorder of white blood cells, unspecified 06/09/2020 4:59 PM [facility] Client Specimen ID # [id number] 06/09/2020 4:59 PM [facility] Number of markers 14 were performed. A-2 Flow CD10 A-3 Flow CD13 A-5 Flow CD20 A-13 Flow CD117 A-14 FLOW CD138 A-1 Flow CD5 A-4 Flow CD19 A-6 Flow CD33 A-7 Flow CD34 A-8 Flow CD45 A-11 Flow CD38 A-12 Flow CD56 A-9 [place]+CD19+ A-10 Lambda+CD19+ 06/09/2020 4:59 PM [facility] Disclaimer Test performed at [facility], [facility] [place], [place], [address]. *The established laboratory minimum viability is 70%. [...] qualified to perform high complexity clinical testing. 06/09/2020 4:59 PM CHIEF CLOTH FINISHING RANGE OPERATOR [facility] Embedded Images 4:59 PM CHIEF CLOTH FINISHING RANGE OPERATOR [facility] Pathology/Cytolo gy BONE MARROW SPECIMEN / Unknown 06/09/2020 9:50 AM CHIEF CLOTH FINISHING RANGE OPERATOR 06/09/2020 1:06 PM CHIEF CLOTH FINISHING RANGE OPERATOR Benjamin Gardner MD LAB - PATHOLOGY/CYTOLOGY [place] Final Result [facility] PATH[facility] LAB [address] [phone] documented in this encounter Visit Diagnoses Diagnosis Disorder of white blood cells, unspecified documented in this encounter
--- OUTSIDE RECORDS SUMMARY | 2025-03-20 02:17 | XMS_ITS | Encounter Summary ---
Author Organization [facility] Address [address] [facility] [place] [address] Care Team Providers Care Brush Finisher Name Role Phone Unavailable Primary Care Provider Unavailabl e Encounter Details Date Type Department Care Team (Late st Contact Info) Description 11/07/2022 Lab Requisition [facility] - Pathology Lab [address] [place] [phone] Shayna Lemus MD [facility] [address] [phone] Illness, unspecified Social History Tobacco Use Types Packs/Day Years Used Date Smoking Tobacco: Never Assessed Comments Unknown Sex and Gender Information Value Date Recorded Sex Assigned at Not on file Legal Sex Female 12:37 PM SERVICE ARCHITECT Gender Identity Not on file Sexual Orientation Not on file documented as of this encounter Plan of Treatment Not on file documented as of this encounter Procedures Procedure Name Priority Date/Time Associated Diagnosis Comments BONE MARROW BIOPSY (STL) Routine 11/03/2022 9:30 AM CDT Illness, unspecified documented in this encounter Results * BONE MARROW BIOPSY (STL) (11/03/2022 9:30 AM CDT) Case Report Bone Marrow Patholog y Report Case: [id number] Authorizing Provider: Shayna Lemus MD Collected: 11/03/2022 09:30 AM Ordering Location: [facility] Pathology Lab Received: 11/07/2022 10:20 AM Pathologist: Maritza Krishnamurthy MD Specimens: A) - Bone Marrow Clot, red-brown clot of purple coagulum B) - Bone Marrow Core, right hip 11/07/2022 3:44 PM CDT [facility] Final Diagnosis Bone marrow, aspirate, clot section, and core biopsy: - Normocellular marrow with maturing trilineage hematopoiesis and ~50% involvement by residual/recurrent plasma cell dyscrasia. - No evidence of lymphoma or high-grade myeloid neoplasm. - See description. Peripheral blood smear: - Leukopenia. - Normocytic, hypochromic anemia. - See description. 11/07/2022 3:44 PM [facility] at 1544 CDT AP Comment Overall, the bone marrow specimen is normocellular for age with maturing trilineage hematopoiesis and residual/recurrent plasma cell dyscrasia. There is no evidence of lymphoma, a high-grade myeloid neoplasm, or significant dyspoiesis. Correlation with clinical findings and relevant cytogenetic/molecular testing is required. 11/07/2022 3:44 PM [facility] Peripheral Smear Description CBC Data: WBC - 3.9, Hgb - 8.9, MCV - 93.9, MCHC - 30.6, and Platelets - 183. Leukocyte number: decreased. Granulocyte morphology: normal. Lymphocyte morphology: normal. Erythrocyte number: decreased. Erythrocyte morphology: normocytic/hypochromic . Anisopoikilocytosis: mild. Polychromasia: mild. Platelet number: normal. Platelet morphology: normal. 11/07/2022 3:44 PM [facility] Bone Marrow Aspirate The aspirate smears and touch imprints are paucicellular and lack spicules. Scattered hematopoietic elements, including variable numbers of plasma cells, are identified. Storage iron (by special stain - touch imprint and aspirate smear): decreased, but suboptimal smears given low cellularity. Sideroblastic iron (by special stain): decreased. Control is appropriately reactive. 11/07/2022 3:44 PM [facility] Bone Marrow Core Biopsy and Clot Section Description Specimen quality: The decalcified bone marrow core biopsy is adequate for evaluation. Cellularity: normocellular, 40%. Trilineage Hematopoiesis: present. Myeloid to Erythroid ratio: normal. Myeloid maturation and localization: normal. Erythroid maturation and localization: normal. Megakaryocyte number: normal. Megakaryocyte distribution: normal. Lymphoid aggregates: absent. Plasma cells: increased. Core biopsy iron (by special stain): decreased. Clot section marrow particles: absent. Clot section morphology: peripheral blood with few admixed marrow elements. To further quantify plasma cells given the paucicellular/hemodilu te aspirate smears, immunohistochemistry is performed. CD138 demonstrates that plasma cells overall comprise ~50% of the marrow cellularity. Control is appropriately reactive. 11/07/2022 3:44 PM [facility] Flow Cytometry Summary Concurrent flow cytometry ([id number]) shows a monoclonal, lambda light chain-restricted plasma cell population. 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 11/07/2022 3:44 PM [facility] Materials Received Received are 28 slides, and 3 blocks (A1, A2; B1) labeled [id number] along with a copy of the outside pathology report[place] [address]. All original materials are returned to the referring institution, along with a copy of our final report. 11/07/2022 3:44 PM [facility] Pathologist Location at [facility] [address] 11/07/2022 3:44 PM [facility] Disclaimer The performance characteristics of all immunohistochemical and indirect immunofluorescence stains (if any) cited in this report were determined by the Histopathology Laboratory of [facility]. Some of these tests were developed by [...] and interpreted by the attending (teaching) pathologist. 11/07/2022 3:44 PM [facility] Embedded Images 11/07/2022 3:44 PM [facility] Pathology/Cytology BONE MARROW SPECIMEN / Unknown 11/03/2022 9:30 AM CDT 11/07/2022 10:20 AM CDT Miscellaneous samples (specimen) BONE MARROW SPECIMEN / Unknown 11/03/2022 9:30 AM CDT 11/07/2022 10:20 AM CDT us Shayna Lemus MD LAB - PATHOLOGY/CYTOLOGY ORDER[place] LES Final Result Performing Organization Address City/State/[facility] Co de Phone Number [facility] [address] [phone] documented in this encounter Visit Diagnoses Diagnosis Illness, unspecified documented in this encounter
[2025-03-20 07:57] LABS: Hematocrit 36.4 % (37.0-47.0); Hemoglobin 11.8 g/dL (12.0-15.0); Immature Granulocyte Percent A 0.3 % (0-0.5); Lymphocytes Absolute Auto 1.47 K/mm3 (0.9-3.2); Mean Corpuscular HGB Conc 32.4 g/dl (32-36); Mean Corpuscular Hemoglobin 32.7 pg (26-34); Mean Corpuscular Volume 100.8 fl (80-100); Nucleated Red Blood Cells Absolute Auto 0.000 K/mm3 (0.0-0.012); Nucleated Red Blood Cells Perc 0.0 % (0.0-0.2); Platelet Count Result 209 k/mm3 (150-375); Red Blood Count 3.61 M/mm3 (4.2-5.4); White Blood Count 7.2 K/mm3 (4.5-10.0)
[2025-03-20 08:16] LABS: Anion Gap 8 mmol/L (4-12); Blood Urea Nitrogen 26 mg/dL (7-17); Calcium 9.8 mg/dL (8.4-10.2); Carbon Dioxide 25 mmol/L (22-30); Chloride 102 mmol/L (98-107); Estimated CRCL calculation 22 ml/min; Estimated Glomerular Filt Rate 28; Glucose 118 mg/dL (65-110); Potassium 4.0 mmol/L (3.4-5.0); Sodium 135 mmol/L (137-145)
--- NOTE | 2025-03-20 08:17 | PM.IMHP ---
H&P: HPI History of Present Illness Date/Time: 03/20/25 08:17 Chief Complaint: abnormal stress test Narrative: 65-year-old woman with CAD status post CABG (RIVER-LAD and SVG-OM) who had been found to have an abnormal stress test for which a cardiac catheterization with possible PCI been recommended. Review of Systems Cardiovascular: Cardiovascular: Reports as per HPI Respiratory: Respiratory: Reports as per HPI COUNTS INCLUDE 234 BEDS AT THE [facility] Past Medical History Medical History Iron deficiency anemia Obesity (BMI 30.0-34.9) Bronchitis Cholecystectomy planned 1980 COPD (chronic obstructive pulmonary disease) Hyperlipidemia Heart attack 2010 Lump in neck Obesity Chronic pain CKD (chronic kidney disease) CAD (coronary artery disease) Hypertension Anemia Type 2 diabetes mellitus Major depressive disorder Surgical History Surgical History S/P triple vessel bypass 2016 Family History Family History Father Diabetes mellitus Family history of congestive heart failure Mother Hypertension Social History Social History Social History: Caffeine-coffee/soda Smoking packs per day: 0.75 Smoking cigarettes per day: 15.0 Years smoked: 40 Smoking pack-years: 30.00 Smoking status: Former smoker Tobacco type: cigarettes Second hand tobacco smoke exposure: No Smoking end date: 07/13/10 Additional smoking assessment comments: 2010 Alcohol intake: never Drinks per week: 1 Alcohol use details: Pt drinks occasionally. Substance use: never Substance use type: does not use Other substance usage details: couple times per week Last use: 11/01/22 Lack of Transportation: YES Lack of Food: Sometimes True Current Housing: I Have Housing Concerned About Future Housing: No Difficulty Paying Gas/Electric Bills: YES Difficulty Paying for Meds: YES Currently Unemployed: No Education: High School Diploma/GED Difficulty w/ Childcare or Family Care: No Living arrangements: with family Gender identity (if verbalized by the patient): Female Spiritual care concerns: No Meds Home Medications and Allergies Home Medications ?Medication ?Instructions ?Recorded ?Confirmed ?Type aspirin 81 mg tablet,delayed 81 mg PO DAILY 03/19/19 03/19/25 History release (Adult Low Dose Aspirin) budesonide-formoterol HFA 80 2 puff inhalation Q12H #10.2 grams 11/18/21 03/19/25 Rx mcg-4.5 mcg/actuation aerosol inhaler (Symbicort) ferrous sulfate 325 mg (65 mg 325 mg PO DAILY 06/07/23 03/19/25 History iron) tablet (FeroSul) fluticasone 100 mcg-salmeterol 50 See Rx Instructions .Route 08/05/24 03/19/25 Rx mcg/dose blistr powdr for .COMPLEX #60 ea inhalation (Wixela Inhub) venlafaxine 150 mg See Rx Instructions .Route 08/23/24 03/19/25 Rx capsule,extended release 24 hr .COMPLEX #90 caps albuterol sulfate 90 mcg/actuation 1 inh inhalation Q4H PRN shortness 09/16/24 03/19/25 Rx aerosol inhaler (ProAir HFA) of breath #8.5 grams oxybutynin chloride 5 mg tablet 5 mg PO DAILY #90 tabs 10/21/24 03/19/25 Rx carvedilol 6.25 mg tablet See Rx Instructions .Route 11/15/24 03/19/25 Rx .COMPLEX #180 tabs pravastatin 40 mg tablet See Rx Instructions .Route 12/16/24 03/19/25 Rx .COMPLEX #90 tabs omeprazole 40 mg capsule,delayed 40 mg PO BID #180 caps 01/13/25 03/19/25 Rx release semaglutide (weight loss) 1 mg/0.5 1 mg (0.5 mL) subcut WEEKLY #2 mL 03/05/25 03/19/25 Rx mL subcutaneous pen injector (Talib) gabapentin 300 mg capsule 300 mg PO BID 03/19/25 03/19/25 History losartan 100 mg tablet 25 mg PO DAILY 03/19/25 03/19/25 History nitroglycerin 0.4 mg sublingual 0.4 mg sublingual Q5-15M PRN chest 03/19/25 03/19/25 History tablet pain ondansetron 8 mg disintegrating 8 mg PO Q8H PRN nausea and vomiting 03/19/25 03/19/25 History tablet Allergies Allergy/AdvReac Type Severity Reaction Status Date / Time GÓMEZ Inhibitors Allergy Intermediate Hives Verified 02/25/25 12:55 codeine AdvReac Intermediate Chest Pain Verified 02/10/25 16:03 tiotropium AdvReac Intermediate Unknown Verified 02/10/25 16:03 Vital Signs Vital Signs - 24 hr 03/20/25 07:22 Temperature 36.1 C L Pulse Rate 74 Respiratory Rate 15 Blood Pressure 146/59 H Pulse Oximetry 100 Oxygen Delivery Room Air Exam Const: General: comfortable HENMT: Mouth: Yes moist mucous membranes Eyes: EOM: EOMs intact bilaterally Neck: Neck: no JVD Resp: Effort & Inspection: normal respiratory effort Cardio: Rate: regular rate Extrem: General: no pedal edema H&P: Results Labs Labs: Short CBC 03/20/25 Range/Units 07:27 WBC 7.2 (4.5-10.0) K/mm3 Hgb 11.8 L (12.0-15.0) g/dL Hct 36.4 L (37.0-47.0) % Plt Count 209 (150-375) k/mm3 [facility] 03/20/25 07:27 Sodium 135 L Potassium 4.0 Chloride 102 Carbon Dioxide 25 BUN 26 H Creatinine 1.82 H Glucose 118 H Calcium 9.8 Assessment and Plan Assessment and plan (1) Abnormal stress test: Code(s): R94.39 - Abnormal result of other cardiovascular function study Status: Acute Plan 65-year-old woman with CAD status post CABG (RIVER-LAD and SVG-OM) who had been found to have an abnormal stress test for which a cardiac catheterization with possible PCI been recommended. -the risk and benefits as well as alternatives to left heart catheterization with possible PCI have been discussed with the patient who agreed to proceed forward
--- NOTE | 2025-03-20 08:20 | WPDMODSED ---
Moderate Sedation Note-Pt Data Patient Data Allergies Allergy/AdvReac Type Severity Reaction Status Date / Time GÓMEZ Inhibitors Allergy Intermediate Hives Verified 02/25/25 12:55 codeine AdvReac Intermediate Chest Pain Verified 02/10/25 16:03 tiotropium AdvReac Intermediate Unknown Verified 02/10/25 16:03 Home Medications ?Medication ?Instructions ?Recorded ?Confirmed ?Type aspirin 81 mg tablet,delayed 81 mg PO DAILY 03/19/19 03/19/25 History release (Adult Low Dose Aspirin) budesonide-formoterol HFA 80 2 puff inhalation Q12H #10.2 grams 11/18/21 03/19/25 Rx mcg-4.5 mcg/actuation aerosol inhaler (Symbicort) ferrous sulfate 325 mg (65 mg 325 mg PO DAILY 06/07/23 03/19/25 History iron) tablet (FeroSul) fluticasone 100 mcg-salmeterol 50 See Rx Instructions .Route 08/05/24 03/19/25 Rx mcg/dose blistr powdr for .COMPLEX #60 ea inhalation (Wixela Inhub) venlafaxine 150 mg See Rx Instructions .Route 08/23/24 03/19/25 Rx capsule,extended release 24 hr .COMPLEX #90 caps albuterol sulfate 90 mcg/actuation 1 inh inhalation Q4H PRN shortness 09/16/24 03/19/25 Rx aerosol inhaler (ProAir HFA) of breath #8.5 grams oxybutynin chloride 5 mg tablet 5 mg PO DAILY #90 tabs 10/21/24 03/19/25 Rx carvedilol 6.25 mg tablet See Rx Instructions .Route 11/15/24 03/19/25 Rx .COMPLEX #180 tabs pravastatin 40 mg tablet See Rx Instructions .Route 12/16/24 03/19/25 Rx .COMPLEX #90 tabs omeprazole 40 mg capsule,delayed 40 mg PO BID #180 caps 01/13/25 03/19/25 Rx release semaglutide (weight loss) 1 mg/0.5 1 mg (0.5 mL) subcut WEEKLY #2 mL 03/05/25 03/19/25 Rx mL subcutaneous pen injector (Talib) gabapentin 300 mg capsule 300 mg PO BID 03/19/25 03/19/25 History losartan 100 mg tablet 25 mg PO DAILY 03/19/25 03/19/25 History nitroglycerin 0.4 mg sublingual 0.4 mg sublingual Q5-15M PRN chest 03/19/25 03/19/25 History tablet pain ondansetron 8 mg disintegrating 8 mg PO Q8H PRN nausea and vomiting 03/19/25 03/19/25 History tablet Sedation/Anesthesia: No previous sedation/anesthesia problems (including family history). [facility] Past Medical History Medical History Iron deficiency anemia Obesity (BMI 30.0-34.9) Bronchitis Cholecystectomy planned 1980 COPD (chronic obstructive pulmonary disease) Hyperlipidemia Heart attack 2010 Lump in neck Obesity Chronic pain CKD (chronic kidney disease) CAD (coronary artery disease) Hypertension Anemia Type 2 diabetes mellitus Major depressive disorder Surgical History Surgical History S/P triple vessel bypass 2017 Family History Family History Father Diabetes mellitus Family history of congestive heart failure Mother Hypertension Social History Social History Social History: Caffeine-coffee/soda Smoking packs per day: 0.75 Smoking cigarettes per day: 15.0 Years smoked: 40 Smoking pack-years: 30.00 Smoking status: Former smoker Tobacco type: cigarettes Second hand tobacco smoke exposure: No Smoking end date: 07/13/10 Additional smoking assessment comments: 2010 Alcohol intake: never Drinks per week: 1 Alcohol use details: Pt drinks occasionally. Substance use: never Substance use type: does not use Other substance usage details: couple times per week Last use: 11/01/22 Lack of Transportation: YES Lack of Food: Sometimes True Current Housing: I Have Housing Concerned About Future Housing: No Difficulty Paying Gas/Electric Bills: YES Difficulty Paying for Meds: YES Currently Unemployed: No Education: High School Diploma/GED Difficulty w/ Childcare or Family Care: No Living arrangements: with family Gender identity (if verbalized by the patient): Female Spiritual care concerns: No Mod Sed Physical Exam Physical Exam Pre Procedural Exam: Normal: Lungs, Heart Size, Heart Rate and Heart Rhythm Hours since solid foods: 12 Hours since liquid intake: 12 Mallampati Classification: class II Internal Medicine - PN: Obj Da Vital Signs Vital Signs: Vital Signs - 24 hr 03/20/25 07:22 Temperature 36.1 C L Pulse Rate 74 Respiratory Rate 15 Blood Pressure 146/59 H Pulse Oximetry 100 Oxygen Delivery Room Air Labs 03/20/25 07:27 03/20/25 07:27 Labs: Laboratory Results - last 24 hr 03/20/25 07:27 WBC 7.2 RBC 3.61 L Hgb 11.8 L Hct 36.4 L MCV 100.8 H MCH 32.7 MCHC 32.4 RDW 12.2 Plt Count 209 MPV 9.9 Immature Gran % (Auto) 0.3 Neut % (Auto) 69.4 Lymph % (Auto) 20.5 [place] % (Auto) 7.0 Eos % (Auto) 2.2 Baso % (Auto) 0.6 Lymph # (Auto) 1.47 [place] # (Auto) 0.5 Eos # (Auto) 0.2 Baso # (Auto) 0.0 Abs Immat Gran (auto) 0.02 Absolute Neuts (auto) 5.0 Absolute Nucleated RBC 0.000 Nucleated RBC % 0.0 Sodium 135 L Potassium 4.0 Chloride 102 Carbon Dioxide 25 Anion Gap 8 BUN 26 H Creatinine 1.82 H Estim Creat Clear Calc 22 Estimated GFR 28 L Glucose 118 H Calcium 9.8 ASA Classification/Sedation ASA Classification/Sedation ASA Class: III Emergent: No Risks: Risks, benefits and alternatives explained and patient/family accepted plan for sedation. Patient re-evaluated immediately prior to sedation.
--- NOTE | 2025-03-20 09:33 | P.PCNCC_ITS ---
Cardiac Cath Procedure Note Date of procedure:: 03/20/25 Performing physician:: CATHETERIZATION LABORATORY REPORT Procedure Date: 03/20/2025 Referring Physician: Eva Tate NP Anesthesia: Versed and Fentanyl were ordered and given in my presence at 0851, procedure ended at 0910. Supervision of nurse, Shayy Pulliam monitored moderate sedation with 2mg Versed and 100mcg Fentanyl was provided for 19 minutes. Pre-op Diagnosis: Abnormal stress test Post-op Diagnosis: Abnormal stress test Procedure(s): Left heart catheterization with coronary angiography Access Site: Right common femoral artery Brief History and Clinical Indications: All risks, benefits and alternatives to left heart catheterization with or without percutaneous coronary intervention was discussed at length with the patient. Risk of complications including but not limited to bleeding, infection, arrhythmia, stroke, worsening kidney function, blood loss, groin hematoma, limb loss, emergency coronary artery bypass grafting, and even were discussed with the patient and all questions were answered. The patient understood and wished to proceed. Time out called, patient name, date of , medical record number, allergies, procedure performed, identify Contract Paralegal, patient and staff member concurred with accurate data, procedure carried on. Findings: LEFT HEART CATHETERIZATION FINDINGS: 1. Left main: The left main coronary artery has 10-20% distal stenosis. 2. Left anterior descending: The LAD in its midbody has 70-80% stenosis. The remainder of the vessel its branches luminal irregularities. The RIVER touches down immediately past the midbody stenosis in a healthy landing zone. 3. Left circumflex: The left circumflex artery provides 3 OM branches. OM1 is small caliber but long vessel that is severely diseased proximally extending into the ostium. The remaining OM branches have diffuse 10% stenosis. There is a patent stent in the proximal left circumflex. 4. Right coronary artery: The RCA is a large dominant vessel with a patent proximal and distal stent. The remainder of the vessel and its branches have diffuse 10% stenosis. 5. Left ventricle: A. End-diastolic pressure 16 mmHg. B. LV gram deferred. C. No significant gradient across aortic valve on catheter pullback. 6. Opening AO pressure 117/48 and closing AO pressure 129/53 7. Right iliofemoral angiogram: The visualized portions of the right iliac a rtery has 10% stenosis. The right common femoral artery above the puncture site has 20% stenosis. The ostial right SFA has 40-50% calcific stenosis. The remainder of the profundus and visualized portions of the SFA has calcific 10% stenosis. Description of Procedure: Informed consent signed and placed in the chart. Patient transferred to factory laborer room. Prepped and draped in usual sterile fashion. 2% lidocaine in right groin area. Micropuncture needle used to access right common femoral artery with Seldinger technique under fluoroscopic and ultrasound guidance. J wire advanced, micropuncture cannula placed and exchanged for a 5F sheath. JL4 diagnostic catheter engaged Left Main Coronary Artery. JR4 diagnostic catheter engaged Right Coronary Artery and was used to crossed the aortic valve. JR4 diagnostic catheter was then used to engage the SVG-OM1 and RIVER-LAD grafts. Multiple orthogonal angiogram obtained and reviewed. Right iliofemoral angiogram was then performed. Hemostasis was achieved by Angioseal. Assessment: Coronary artery disease Patent coronary grafts Peripheral arterial disease Post Operative Condition: Stable No significant blood loss Disposition: Home Plan: The patient will be monitored in the recovery area. Continue aggressive medical therapy and risk factor modification. Lance Vick Interventional Cardiology
[2025-03-20] MEDS: SODIUM CHLORIDE 0.9% IV 1,000 ML 200 ML IV CONT (09:39)
--- NOTE | 2025-03-20 12:09 | SUR.PHASEII ---
Pt bed rest complete at this time. Pt ambulated to bathroom and back w/o complications. Pt requested to sit up in bed for remaining hour before d/c.
== END 2025-03-20 13:26 | disposition home or self-care (01) ==
PROVIDERS: PCP Nurse Practitioner; Visit Provider Internal Medicine
PROC: 4A023N7 Measurement of Cardiac Sampling and Pressure, Left Heart, Percutaneous Approach (ICD-10-PCS; CPT 93459; principal; 2025-03-20 08:30)
DX: I25.10 Atherosclerotic heart disease of native coronary artery without angina pectoris (principal); I25.84 Coronary atherosclerosis due to calcified coronary lesion; R94.39 Abnormal result of other cardiovascular function study; I73.9 Peripheral vascular disease, unspecified; Z95.5 Presence of coronary angioplasty implant and graft; Z87.891 Personal history of nicotine dependence; Z95.1 Presence of aortocoronary bypass graft
CPT/HCPCS: 36415; 80048; 85025; 93459; C1760; C1769; C1887; C1894; G0269; J1644; J2003; J2250; J2305; J3010; J7030; J7040